=== PATIENT | female | born 1990 | race Two or more races ===

== ENCOUNTER 2016-10-28 10:27 | Emergency (ER) | payer OTHER ==
[~2016-10-28] VITALS: Ht 170.2 cm; Wt 63.5 kg
[2016-10-28] MEDS ORDERED: IV NORMAL SALINE 1,000ML 1,000 ML IV SCH (10:56)
[2016-10-28] MEDS ORDERED: MORPHINE SULFATE 4 MG/ML DISP.SYRIN. IV/SQ PRN (11:00)
[2016-10-28] MEDS ORDERED: ONDANSETRON PF 4 MG/2 ML VIAL. IV ONE (11:15)
[2016-10-28] MEDS ORDERED: methylPREDNISolone SOD SUCC PF 125 MG/2 ML VIAL. IV ONE (11:15)
[2016-10-28] MEDS ORDERED: DICYCLOMINE 20 MG/2 ML AMPUL. IM ONE (11:15)
[2016-10-28 11:30] LABS: BASO # 0.1 x10^3/uL (0.0-0.2); BASO % 1 % (0-3); EOS # 0.2 x10^3/uL (0.0-0.7); EOS % 2 % (0-3); HEMATOCRIT 39.7 % (36.0-47.0); HEMOGLOBIN 12.7 g/dL (12.0-15.5); LYMPH # 1.8 x10^3/uL (1.0-4.8); LYMPH % 24 % (24-48); MEAN CORPUSCULAR HEMOGLOBIN 27 pg (25-35); MEAN CORPUSCULAR HGB CONC 32 g/dL (31-37); MEAN CORPUSCULAR VOLUME 83 fL (79-100); MONO # 0.6 x10^3/uL (0.0-1.1); MONO % 8 % (0-9); NEUT # 4.9 x10^3uL (1.8-7.7); NEUT % 65 % (31-73); PLATELET COUNT 191 x10^3/uL (140-400); RED BLOOD COUNT 4.76 x10^6/uL (3.50-5.40); RED CELL DISTRIBUTION WIDTH 13.9 % (11.5-14.5); WHITE BLOOD COUNT 7.5 x10^3/uL (4.0-11.0)
[2016-10-28 11:37] LABS: ALBUMIN 3.9 g/dL (3.4-5.0); CALCIUM 8.9 mg/dL (8.5-10.1); CREATININE 0.6 mg/dL (0.6-1.0); POTASSIUM 3.4 mmol/L (3.5-5.1); TOTAL BILIRUBIN 0.3 mg/dL (0.2-1.0); TOTAL PROTEIN 7.9 g/dL (6.4-8.2)
--- NOTE | 2016-10-28 11:43 | RAD ---
Acute abdomen series with chest, 3 views, 10/28/2016: History: Abdominal pain Gas is present scattered throughout the colon in a nonspecific pattern. No free air seen in the abdomen. There is no evidence of organomegaly or abnormal abdominal calcification. Bilateral fallopian tube occlusion devices are noted. The heart size is normal. The lungs are clear. There is no evidence of pleural fluid. IMPRESSION: No acute abdominal abnormality is detected.
[2016-10-28 11:47] LABS: BARBITURATES NEG (NEG); BENZODIAZEPINES NEG (NEG); CANNABINOIDS NEG (NEG); COCAINE NEG (NEG); METHADONE NEG (NEG); OPIATES NEG (NEG); PHENCYCLIDINE NEG (NEG)
[2016-10-28 11:48] LABS: AMPHETAMINE/METHAMPHETAMINE NEG (NEG)
--- NOTE | 2016-10-28 11:48 | PHYS DOC ---
General Chief Complaint: ABDOMINAL PAIN Stated Complaint: Crohn's exacerbation Time Seen by MD: 10:31 Source: patient Exam Limitations: no limitations Problems: History of Present Illness Initial Comments Pt is 26/F h/o Crohn's to ED c/o abdominal pain. Pt states she's having Crohn's exacerbation, hasn't had one in 3 years. 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 She says pain was so strong it knocked her into the pool. She dried off and drove herself to ED. Abdominal pain low abdomen/epigastric 8.5 cramping identical to prior sx. Loose watery stool this am she thinks may have had slight blood. Typically takes steroids/pain meds with her exacerbations. No travel/bad food exposure, no fever/chills/cp/sob/n/v/TREJO/joint pain. ED VS: 98.3, 75, 16, 114/70, 98% RA Timing/Duration: 1-3 hours Severity: severe Modifying Factors: improves with medication Associated Symptoms: other Allergies: Coded Allergies: No Known Drug Allergies (Unverified , 10/28/16) Past Medical History Medical History: other (Crohn/s, anemia, anxiety, bipolar, hector's) Surgical History: other (Exp Lap) Social History Smoker: non-smoker Alcohol: none Drugs: none Review of Systems Constitutional: denies chills, denies fever Respiratory: denies cough, denies shortness of breath Cardiovascular: denies chest pain, denies palpitations Gastrointestinal: see HPI Genitourinary: denies dysuria, denies frequency Musculoskeletal: denies back pain, denies joint swelling, denies neck pain Psychiatric/Neurological: denies headache, denies numbness, denies paresthesia Physical Exam General Appearance: WD/WN, mild distress Eyes: bilateral eye EOMI, bilateral eye PERRL, bilateral eye normal inspection Ear, Nose, Throat: hearing grossly normal, normal ENT inspection, normal pharynx Neck: non-tender, supple Respiratory: normal breath sounds, no respiratory distress Cardiovascular: normal peripheral pulses, regular rate, rhythm Gastrointestinal: normal bowel sounds, soft (ND, generalized TTP no focality no r/g/mass), no organomegaly Rectal: deferred Back: no CVA tenderness, no vertebral tenderness Extremities: non-tender, normal inspection 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 PHYSICIAN: GAYLE STRATTON DO REASON: abd pain PROCEDURE: ACUTE ABDOMEN SERIES Acute abdomen series with chest, 3 views, 10/28/2016: History: Abdominal pain Gas is present scattered throughout the colon in a nonspecific pattern. No free air seen in the abdomen. There is no evidence of organomegaly or abnormal abdominal calcification. Bilateral fallopian tube occlusion devices are noted. The heart size is normal. The lungs are clear. There is no evidence of pleural fluid. IMPRESSION: No acute abdominal abnormality is detected. DICTATED AND SIGNED BY: NATALY DE SANTIAGO MD DATE: 10/28/16 1139 CC: GAYLE STRATTON DO ~ K+ slightly low PO replacement given. Pt feeling much better. States she is ready for discharge, requests contact information for local GI as it has been 3 years since her last GI evaluation/scopes. Pt is aware she must obtain referral thru her PCP/arielle. She expressed agreement/understanding with treatment plan. Departure Time of Disposition: 12:22 Disposition: 01 HOME, SELF-CARE Diagnosis: Crohn's exacerbation, hypokalemia Condition: GOOD Patient Instructions: Crohn's Disease, Hypokalemia-Brief Additional Instructions: Work excuse thru 10/31 if needed. Rest, no strenuous activity. Aggressive hydration with gatorade, water. Rx: norco 5mg #15, prednisone, dicyclomine, cipro, flagyl Take meds with food. No alcohol while taking flagyl to avoid severe nausea and vomitting. Follow up with your doctor Tuesday; may need outpatient GI referral. Per your request I include contact information for our local analog ic design architect: Lubna Lozoya MD [facility] [address] [place] [address] Eat one banana twice daily until doctor follow up. Return to ED with new or changing symptoms. GAYLE STRATTON DO Oct 28, 2016 11:48
[2016-10-28 12:02] LABS: BILIRUBIN,URINE NEG (NEG); CLARITY,URINE HAZY; COLOR,URINE AMBER; GLUCOSE,URINE NEG (NEG); NITRITE,URINE NEG (NEG); RBC,URINE 0 /HPF (0-2); SQUAMOUS EPITHELIAL CELL,UR MANY /LPF; UROBILINOGEN,URINE 0.2 mg/dL (0.2 mg/dL)
[2016-10-28 12:03] LABS: AMORPHOUS SEDIMENT,UR PRESENT /HPF; SPERM,URINE PRESENT /HPF
[2016-10-28 12:04] LABS: BACTERIA,URINE FEW /HPF (0-FEW)
[2016-10-28] MEDS ORDERED: POTASSIUM CHLORIDE 20 MEQ TABLET.ER. PO ONE (12:15)
[2016-10-28] MEDS ORDERED: PRED20TA PO (12:18)
[2016-10-28] MEDS ORDERED: METR250T PO (12:18)
[2016-10-28] MEDS ORDERED: DICY20TA3 PO (12:18)
[2016-10-28] MEDS ORDERED: CIPR500T94 PO (12:18)
[2016-10-28] MEDS ORDERED: HYDR-971 PO (12:25)
[2016-10-28] MEDS ORDERED: FENTANYL PF 100 MCG/2 ML VIAL. IV ONE (12:30)
[2016-10-28 12:40] VITALS: BP 101/58
== END 2016-10-28 12:48 | disposition home or self-care (01) ==
LOC: ER 10:27
DX: K50.90 Crohn's disease, unspecified, without complications (principal); E87.6 Hypokalemia; Z86.2 Personal history of diseases of the blood and blood-forming organs and certain disorders involving the immune mechanism
CPT/HCPCS: 36415; 74022; 80053; 80305; 81001; 83690; 84703; 85027; 96361; 96372; 96374; 96375; 99285; J0500; J2270; J2405; J2930; J3010; 81025; G0481; J7030

== ENCOUNTER 2016-12-07 06:39 | Emergency (ER) | payer OTHER ==
[~2016-12-07 06:39] MED LIST: CIPR500T94 PO; DICY20TA3 PO; HYDR-971 PO; METR250T PO; PRED20TA PO
[2016-12-07] MEDS ORDERED: ONDA4TAB7 PO (07:39)
[2016-12-07] MEDS ORDERED: MORP15TA PO (07:39)
--- NOTE | 2016-12-07 07:39 | PHYS DOC ---
Past History Past Medical History: Hypothyroid, Other Past Surgical History: Other Alcohol Use: None Drug Use: None Adult General Chief Complaint Chief Complaint: ABDOMINAL PAIN HPI HPI 26-year-old female presenting to the emergency department with epigastric abdominal pain that radiates bilaterally. She reports blood in her stools and history of Crohn's disease. She reports this is similar to many of her Crohn's flares. The pain is mild intermittent and without alleviating factors. She called her primary care doctor who recommended she come here for evaluation and care. Review of systems is negative for chest pain shortness of breath. Positive for nausea with one episode of nonbilious nonbloody emesis. Negative for fevers chills or rashes. All other review of systems is negative unless otherwise noted in history of present illness. Review of Systems Review of Systems SEE ABOVE. Current Medications Current Medications Current Medications Medications (Trade) Dose Ordered Sig/Dee Dee Start Time Stop Time Status Last Admin Dose Admin Hydromorphone HCl (Dilaudid) 0.5 mg 1X ONCE 12/07/16 08:00 12/07/16 08:01 Ondansetron HCl (Zofran) 4 mg 1X ONCE 12/07/16 07:30 12/07/16 07:31 UNV Sodium Chloride 1,000 ml @ 1,000 mls/hr 1X ONCE 12/07/16 07:30 12/07/16 08:29 UNV Allergies Allergies Allergies Coded Allergies Type Severity Reaction Last Updated Verified No Known Drug Allergies 10/28/16 No Physical Exam Physical Exam Constitutional: Well developed, well nourished, no acute distress, non-toxic appearance. HENT: Normocephalic, atraumatic, bilateral external ears normal, oropharynx moist, no oral exudates, nose normal. Eyes: PERRLA, EOMI, conjunctiva normal, no discharge. [] Neck: Normal range of motion, no tenderness, supple, no stridor. [] Cardiovascular:Heart rate regular rhythm, no murmur Lungs & Thorax: Bilateral breath sounds clear to auscultation [] Abdomen: Soft mildly tender epigastrum without rebound tenderness or guarding present. Negative McBurneys point. Negative De sign. No ecchymosis present. Skin: Warm, dry, no erythema, no rash. [] Back: No tenderness, no CVA tenderness. Extremities: No tenderness, no cyanosis, no clubbing, ROM intact, no edema. Neurologic: Alert and oriented X 3, normal motor function, normal sensory function, no focal deficits noted. [] Psychologic: Affect normal, judgement normal, mood normal. Current Patient Data Vital Signs Vital Signs Date Time Temp Pulse Resp B/P (MAP) Pulse Ox O2 Delivery O2 Flow Rate FiO2 12/07/16 06:50 97.8 66 18 97 Room Air EKG EKG [] Radiology/Procedures Radiology/Procedures [] Course & Med Decision Making Course & Med Decision Making Pertinent Labs and Imaging studies reviewed. (See chart for details) [] 18-year-old female presenting to the emergency department today with epigastric abdominal pain. Vital signs showed her to be afebrile. Normal heart rate. Saturating well. Pertinent physical exam findings showed mild tenderness in the epigastrium without rebound tenderness or guarding. Nontender gallbladder appendix. The patient was given IV fluids nausea and pain medication. Blood work sent. On reexamination the patient's abdomen was nontender, she is feeling better and subsequently discharged home. The patient was then discharged home in stable condition to follow up with their primary care physician over the next 2-3 days. They were to return if their symptoms worsened or if they were concerned for any reason. [id number] discharge instructions and return precautions were given. Patient's questions were answered to their satisfaction. Patient is comfortable plan. Dragon Disclaimer Dragon Disclaimer This chart was dictated in whole or in part using Voice Recognition software in a busy, high-work load, and often noisy Emergency Department environment. It may contain unintended and wholly unrecognized errors or omissions. Departure Departure: Impression: Primary Impression: Epigastric abdominal pain Additional Impression: Nausea and vomiting Disposition: 01 HOME, SELF-CARE Condition: STABLE Referrals: GABRIEL TITUS DO, [facility] (PCP) Patient Instructions: Abdominal Pain, Nausea and Vomiting Additional Instructions: Thank you for allowing us to participate in your care today. Followup with your primary care physician in 3 days if your symptoms do not improve. If you do not have a primary care provider you can ask for a list of our primary care providers. Return to the emergency department you have any new or concerning findings. This should be evaluated by the primary care physician and any necessary consulting services for continued management within a few days after discharge. Return to emergency room if you have any new or concerning symptoms including but not limited to fever, chills, nausea, vomiting, intractable pain, any new rashes, chest pain, shortness of air, uncontrolled bleeding, difficulty breathing, and/or vision loss. Scripts Ondansetron Hcl (ZOFRAN) 4 Mg Tablet 1 TAB PO PRN Q6HRS Y for NAUSEA, #6 TAB Prov: PETROS MCGARRY MD 12/07/16 Morphine Sulfate (MORPHINE SULFATE) 15 Mg Tablet 1 TAB PO PRN Q8HRS Y for SEVERE PAIN, #8 TAB Be careful as this medication may make you sleepy or drowsy. Do not drive or operate heavy machinery on this medication. Be sure to ask the pharmacist about other side effects that can exist such as constipation. Prov: PETROS MCGARRY MD 12/07/16 Problem Qualifiers Additional Impression: Nausea and vomiting Vomiting type: unspecified Vomiting Intractability: non-intractable Qualified Codes: R11.2 - Nausea with vomiting, unspecified PETROS MCGARRY MD December 07, 2016 07:39
[2016-12-07 07:43] LABS: BASO # 0.1 x10^3/uL (0.0-0.2); BASO % 1 % (0-3); EOS # 0.2 x10^3/uL (0.0-0.7); EOS % 3 % (0-3); HEMATOCRIT 37.5 % (36.0-47.0); HEMOGLOBIN 12.4 g/dL (12.0-15.5); LYMPH # 1.6 x10^3/uL (1.0-4.8); LYMPH % 26 % (24-48); MEAN CORPUSCULAR HEMOGLOBIN 27 pg (25-35); MEAN CORPUSCULAR HGB CONC 33 g/dL (31-37); MEAN CORPUSCULAR VOLUME 81 fL (79-100); MONO # 0.5 x10^3/uL (0.0-1.1); MONO % 8 % (0-9); NEUT # 3.7 x10^3uL (1.8-7.7); NEUT % 62 % (31-73); PLATELET COUNT 185 x10^3/uL (140-400); RED BLOOD COUNT 4.62 x10^6/uL (3.50-5.40); RED CELL DISTRIBUTION WIDTH 14.8 % (11.5-14.5); WHITE BLOOD COUNT 6.1 x10^3/uL (4.0-11.0)
[2016-12-07 07:54] LABS: PREG TEST PT QUAL NEGATIVE (NEG)
[2016-12-07 07:55] LABS: ALBUMIN 3.8 g/dL (3.4-5.0); CALCIUM 8.4 mg/dL (8.5-10.1); CREATININE 0.6 mg/dL (0.6-1.0); DIRECT BILIRUBIN 0.1 mg/dL (0.0-0.2); POTASSIUM 3.9 mmol/L (3.5-5.1); TOTAL BILIRUBIN 0.3 mg/dL (0.2-1.0); TOTAL PROTEIN 7.6 g/dL (6.4-8.2)
[2016-12-07] MEDS ORDERED: HYDROmorphone PF 1 MG/ML DISP.SYRIN IV ONE ×2 (08:00→08:45)
[2016-12-07] MEDS ORDERED: ONDANSETRON PF 4 MG/2 ML VIAL. IV ONE (08:00)
[2016-12-07] MEDS ORDERED: IV NORMAL SALINE 1,000ML 1,000 ML IV ONE (08:00)
[2016-12-07 08:29] LABS: BILIRUBIN,URINE NEG (NEG); CLARITY,URINE HAZY; COLOR,URINE AMBER; GLUCOSE,URINE NEG (NEG)
[2016-12-07 08:30] LABS: BACTERIA,URINE 0 /HPF (0-FEW); HYALINE CASTS, URINE OCC /HPF; NITRITE,URINE NEG (NEG); SQUAMOUS EPITHELIAL CELL,UR FEW /LPF; UROBILINOGEN,URINE 0.2 mg/dL (0.2 mg/dL)
[2016-12-07 09:57] VITALS: BP 134/92
== END 2016-12-07 09:40 | disposition home or self-care (01) ==
LOC: ER 06:39
DX: R10.13 Epigastric pain (principal); R11.2 Nausea with vomiting, unspecified; E03.9 Hypothyroidism, unspecified
CPT/HCPCS: 36415; 80048; 80076; 81001; 81025; 83690; 84703; 85027; 96361; 96374; 96375; 96376; 99285; J1170; J2405; J7030

== ENCOUNTER 2017-03-08 20:36 | Emergency (ER) | payer OTHER ==
[~2017-03-08] VITALS: Ht 170.2 cm; Wt 64.9 kg
[~2017-03-08 20:36] MED LIST changes: +MORP15TA PO; +ONDA4TAB7 PO
[2017-03-08 21:40] LABS: BILIRUBIN,URINE NEG (NEG); CLARITY,URINE CLEAR; COLOR,URINE YELLOW; GLUCOSE,URINE NEG (NEG); UROBILINOGEN,URINE 0.2 mg/dL (0.2 mg/dL)
[2017-03-08 21:41] LABS: BACTERIA,URINE 0 /HPF (0-FEW); NITRITE,URINE NEG (NEG); RBC,URINE 0 /HPF (0-2); SQUAMOUS EPITHELIAL CELL,UR OCC /LPF; WBC,URINE OCC /HPF (0-4)
--- NOTE | 2017-03-08 21:43 | PHYS DOC ---
Past History Past Medical History: Hypothyroid, Other Past Surgical History: Other Alcohol Use: None Drug Use: None Adult General Chief Complaint Chief Complaint: FLANK PAIN [facility] HPI 26-year-old female with history of Crohn's disease previously on multiple narcotics, now presents to the emergency department complaining of left low back pain. Patient reports normal bowel and bladder habits. She states her left low back is very sore with movement. No nausea vomiting fevers chills or sweats.It Does not radiate into her buttock or legs. She is able to use her legs normally. Patient cannot identify any injury which might of strained her back. Does not report any strenuous activity falls or trauma. Patient has tubal ligation in place and denies the possibility of Review of Systems Review of Systems Constitutional: Denies fever or chills [] Eyes: Denies change in visual acuity, redness, or eye pain [] HENT: Denies nasal congestion or sore throat [] Respiratory: Denies cough or shortness of breath [] Cardiovascular: No additional information not addressed in HPI [] GI: Denies abdominal pain, nausea, vomiting, bloody stools or diarrhea [] : Denies dysuria or hematuria [] Musculoskeletal: Denies back pain or joint pain [] Integument: Denies rash or skin lesions [] Neurologic: Denies headache, focal weakness or sensory changes [] Endocrine: Denies polyuria or polydipsia [] Allergies Allergies Allergies Coded Allergies Type Severity Reaction Last Updated Verified No Known Drug Allergies 10/28/16 No Physical Exam Physical Exam Well-appearing female no acute distress clear lungs regular rate and rhythm. Left lumbar distribution with soft tissue tenderness laterally. No CVA tenderness. No spinal tenderness no skin changes. Nontender abdomen and pelvis. Normal bowel sounds no mass or megaly nondistended abdomen. Remainder of exam is benign including neurovascularly intact bilateral lower extremities with no saddle anesthesia negative straight leg raise normal symmetrical reflexes. Constitutional: Well developed, well nourished, no acute distress, non-toxic appearance. [] HENT: Normocephalic, atraumatic, bilateral external ears normal, oropharynx moist, no oral exudates, nose normal. [] Eyes: PERRLA, EOMI, conjunctiva normal, no discharge. [] Neck: Normal range of motion, no tenderness, supple, no stridor. [] Cardiovascular:Heart rate regular rhythm, no murmur [] Lungs & Thorax: Bilateral breath sounds clear to auscultation [] Abdomen: Bowel sounds normal, soft, no tenderness, no masses, no pulsatile masses. [] Skin: Warm, dry, no erythema, no rash. [] Back: No tenderness, no CVA tenderness. [] Extremities: No tenderness, no cyanosis, no clubbing, ROM intact, no edema. [] Neurologic: Alert and oriented X 3, no focal deficits noted. [] Psychologic: Affect normal, judgement normal, mood normal. [] Current Patient Data Vital Signs Vital Signs Date Time Temp Pulse Resp B/P (MAP) Pulse Ox O2 Delivery O2 Flow Rate FiO2 03/08/17 20:56 98.0 68 20 98 Room Air EKG EKG [] Radiology/Procedures Radiology/Procedures [] Course & Med Decision Making Course & Med Decision Making Pertinent Labs and Imaging studies reviewed. (See chart for details) Signs and symptoms consistent with musculoskeletal low back pain likely secondary to lumbar strain. Patient appears to have a baseline of anger without basis. No evidence of cauda equina syndrome. Urinalysis pending to rule out less likely possibility of pyelonephritis. Presentation not consistent with renal colic. She has previously been on multiple narcotics by her description for her Crohn's disease. She is very clear that this is not consistent with an exacerbation of her Crohn's disease as she has no anterior abdominal pain. No vomiting or diarrhea. She reports she is not on narcotics currently. We'll give Toradol IM and anticipate outpatient follow-up with NSAIDs and Tylenol. Patient were to follow up with PCP tomorrow for reevaluation and further workup and treatment as needed. She agrees with outpatient follow-up and strict return precautions given. [] Dragon Disclaimer Dragon Disclaimer This chart was dictated in whole or in part using Voice Recognition software in a busy, high-work load, and often noisy Emergency Department environment. It may contain unintended and wholly unrecognized errors or omissions. Departure Departure: Impression: Primary Impression: Low back pain Additional Impression: Lumbar strain Disposition: HOME, SELF-CARE Condition: GOOD Referrals: RAUDEL METCALF MD (PCP) Patient Instructions: Back Pain, Adult Additional Instructions: You have musculoskeletal low back pain. Rest and apply ice if you feel this is helpful. Avoid strenuous activity until you're feeling better. Take 800 mg of ibuprofen every 6 hours as well as Tylenol every 4 hours if necessary. Follow- up with your doctor in 1-2 days and return immediately for new severe or worsening symptoms. Problem Qualifiers YOLANDA MONTERO MD Mar 08, 2017 21:43
[2017-03-08] MEDS: KETOROLAC 60 MG/2 ML VIAL. IM ONE (22:05)
[2017-03-08 22:14] VITALS: BP 110/59
== END 2017-03-08 22:15 | disposition home or self-care (01) ==
LOC: ER 20:36
DX: S39.012A Strain of muscle, fascia and tendon of lower back, initial encounter (principal); E03.9 Hypothyroidism, unspecified; K50.90 Crohn's disease, unspecified, without complications; X58.XXXA Exposure to other specified factors, initial encounter; Y93.89 Activity, other specified; Y99.8 Other external cause status; Y92.89 Other specified places as the place of occurrence of the external cause
CPT/HCPCS: 81001; 96372; 99283; J1885

== ENCOUNTER 2017-03-21 17:16 | Emergency (ER) | payer OTHER ==
[2017-03-21 17:40] VITALS: BP 107/63
--- NOTE | 2017-03-22 05:36 | ED.ADGEN ---
Past History Past Medical History: Hypothyroid, Other Past Surgical History: No Surgical History, Other Alcohol Use: None Drug Use: None Adult General Chief Complaint Chief Complaint sore throat, body aches [facility] Patient is a a female presents with sore throat body aches today. No fever chills or sweats. Pain with swallowing pedis history of strep throat and strep throat exposure. No rash neck stiffness. Review of Systems Review of Systems Constitutional: Denies fever or chills [] Eyes: Denies change in visual acuity, redness, or eye pain [] [] Respiratory: Denies cough or shortness of breath [] Cardiovascular: No additional information not addressed in HPI [] GI: Denies abdominal pain, nausea, vomiting, bloody stools or diarrhea [] : Denies dysuria or hematuria [] Musculoskeletal: Denies back pain or joint pain [] Integument: Denies rash or skin lesions [] Neurologic: Denies headache, focal weakness or sensory changes [] Endocrine: Denies polyuria or polydipsia [] Allergies Allergies Allergies Coded Allergies Type Severity Reaction Last Updated Verified No Known Drug Allergies 10/28/16 No Physical Exam Physical Exam Constitutional: Well developed, well nourished, no acute distress, non-toxic appearance. [] HENT: Normocephalic, atraumatic, bilateral external ears normal, oropharynx moist, red mild swelling, exudate present, nose normal. [] Eyes: PERRLA, EOMI, conjunctiva normal, no discharge. [] Neck: Normal range of motion, no tenderness, supple, no stridor. [] Cardiovascular:Heart rate regular rhythm, no murmur [] Lungs & Thorax: Bilateral breath sounds clear to auscultation [] Abdomen: Bowel sounds normal, soft, no tenderness, no masses, no pulsatile masses. [] Skin: Warm, dry, no erythema, no rash. [] Back: No tenderness, no CVA tenderness. [] Extremities: No tenderness, no cyanosis, no clubbing, ROM intact, no edema. [] Neurologic: Alert and oriented X 3, normal motor function, normal sensory function, no focal deficits noted. [] Psychologic: Affect normal, judgement normal, mood normal. [] Current Patient Data Vital Signs Vital Signs Date Time Temp Pulse Resp B/P (MAP) Pulse Ox O2 Delivery O2 Flow Rate FiO2 03/21/17 17:40 98.9 78 18 99 Room Air EKG EKG [] Radiology/Procedures Radiology/Procedures [] Course & Med Decision Making Course & Med Decision Making Pertinent Labs and Imaging studies reviewed. (See chart for details) [clinical strep pharyngitis] Final Impression Final Impression strep pharyngitis] Problems: Dragon Disclaimer Dragon Disclaimer This electronic medical record was generated, in whole or in part, using a voice recognition dictation system. DANIA ADAM DO Mar 22, 2017 05:36
== END 2017-03-21 18:48 | disposition home or self-care (01) ==
LOC: ER 17:16
DX: J02.0 Streptococcal pharyngitis (principal); E03.9 Hypothyroidism, unspecified
CPT/HCPCS: 99283

== ENCOUNTER 2017-04-20 18:20 | Emergency (ER) | payer OTHER ==
[~2017-04-20] VITALS: Ht 170.2 cm; Wt 64.9 kg
[2017-04-20] MEDS ORDERED: IV NORMAL SALINE 1,000ML 1,000 ML IV ONE (20:00)
[2017-04-20 20:21] LABS: BASO # 0.1 x10^3/uL (0.0-0.2); BASO % 1 % (0-3); EOS # 0.4 x10^3/uL (0.0-0.7); EOS % 4 % (0-3); HEMATOCRIT 38.1 % (36.0-47.0); HEMOGLOBIN 12.6 g/dL (12.0-15.5); LYMPH # 3.2 x10^3/uL (1.0-4.8); LYMPH % 33 % (24-48); MEAN CORPUSCULAR HEMOGLOBIN 27 pg (25-35); MEAN CORPUSCULAR HGB CONC 33 g/dL (31-37); MEAN CORPUSCULAR VOLUME 82 fL (79-100); MONO # 0.8 x10^3/uL (0.0-1.1); MONO % 8 % (0-9); NEUT # 5.2 x10^3uL (1.8-7.7); NEUT % 54 % (31-73); PLATELET COUNT 223 x10^3/uL (140-400); RED BLOOD COUNT 4.65 x10^6/uL (3.50-5.40); RED CELL DISTRIBUTION WIDTH 14.3 % (11.5-14.5); WHITE BLOOD COUNT 9.7 x10^3/uL (4.0-11.0)
[2017-04-20 20:28] LABS: CALCIUM 8.5 mg/dL (8.5-10.1); CREATININE 0.6 mg/dL (0.6-1.0); GFR 118.2; POTASSIUM 3.8 mmol/L (3.5-5.1)
[2017-04-20] MEDS ORDERED: IOHEXOL 300 MG/ML 75 ML VIAL. IV ONE (20:30)
--- NOTE | 2017-04-20 20:58 | RAD ---
CT scan of the neck with contrast 04/20/2017 HISTORY: Difficulty swallowing with neck pain for one week. TECHNIQUE: After the intravenous administration of 75 cc of Omnipaque 300, contiguous, 3 mm axial sections were obtained through the neck. One or more of the following individualized dose reduction techniques were utilized for this study: 1. Automated exposure control. 2. Adjustment of the mA and/or kV according to patient size. 3. Use of iterative reconstruction technique. FINDINGS: The mucosal structures of the nasopharynx, oropharynx, hypopharynx and larynx are within normal limits. The parotid and submandibular glands are within normal limits. The thyroid gland is within normal limits. No abnormal soft tissue mass or fluid collection is seen within the neck. Prominent likely reactive lymph nodes are seen scattered throughout the neck. These measure 5 mm to 1.7 cm in size. The osseous structures are grossly intact. IMPRESSION: No acute abnormality is seen. Electronically signed by: Nando Ponce MD (04/20/2017 8:55 PM) [facility]
[2017-04-20] MEDS ORDERED: PRED-220 PO (21:33)
--- NOTE | 2017-04-20 21:36 | PHYS DOC ---
Past History Past Medical History: Hypothyroid, Other Past Surgical History: No Surgical History, Other Alcohol Use: None Drug Use: None Adult General Chief Complaint Chief Complaint: SORE THROAT HPI HPI Patient is a 27 year old F who presents with sore throat and difficulty swallowing over the past 2 days. She feels that her symptoms are gradually worsening. She denies cough. She denies fevers sweats chills or flulike symptoms. She was treated for strep throat approximately 2-3 weeks ago and feels that her symptoms did resolve. Review of Systems Review of Systems Constitutional: Denies fever or chills [] Eyes: Denies change in visual acuity, redness, or eye pain [] HENT: Denies nasal congestion Respiratory: Denies cough or shortness of breath [] Cardiovascular: No additional information not addressed in HPI [] GI: Denies abdominal pain, nausea, vomiting, bloody stools or diarrhea [] : Denies dysuria or hematuria [] Musculoskeletal: Denies back pain or joint pain [] Integument: Denies rash or skin lesions [] Neurologic: Denies headache, focal weakness or sensory changes [] Endocrine: Denies polyuria or polydipsia [] Family History Family History Noncontributory Current Medications Current Medications No current home medications Current Medications Medications (Trade) Dose Ordered Sig/Dee Dee Start Time Stop Time Status Last Admin Dose Admin Iohexol (Omnipaque 300 Mg/ml) 75 ml 1X ONCE 04/20/17 20:30 04/20/17 20:31 DC 04/20/17 20:23 75 ML Sodium Chloride 1,000 ml @ 1,000 mls/hr 1X ONCE 04/20/17 20:00 04/20/17 20:59 DC 04/20/17 20:05 1,000 MLS/HR Allergies Allergies Allergies Coded Allergies Type Severity Reaction Last Updated Verified No Known Drug Allergies 10/28/16 No Physical Exam Physical Exam Constitutional: Well developed, well nourished, no acute distress, non-toxic appearance. [] HENT: Normocephalic, atraumatic, bilateral external ears normal, oropharynx moist, no oral exudates, nose normal. [] Mild tenderness with palpation of the anterior neck Eyes: PERRLA, conjunctiva normal, no discharge. [] Neck: Normal range of motion, no tenderness, supple, no stridor. [] Cardiovascular:Heart rate regular rhythm, no murmur [] Lungs & Thorax: Bilateral breath sounds clear to auscultation [] Abdomen: Bowel sounds normal, soft, no tenderness, no masses, no pulsatile masses. [] Skin: Warm, dry, no erythema, no rash. [] Back: No tenderness, no CVA tenderness. [] Extremities: No tenderness, no cyanosis, no clubbing, ROM intact, no edema. [] Neurologic: Alert and oriented X 3, normal motor function, normal sensory function, no focal deficits noted. [] Psychologic: Affect normal, judgement normal, mood normal. [] Current Patient Data Vital Signs Vital Signs Date Time Temp Pulse Resp B/P (MAP) Pulse Ox O2 Delivery O2 Flow Rate FiO2 04/20/17 18:20 98.7 80 18 99 Room Air Lab Results Laboratory Tests Test 04/20/17 19:55 White Blood Count 9.7 x10^3/uL (4.0-11.0) Red Blood Count 4.65 x10^6/uL (3.50-5.40) Hemoglobin 12.6 g/dL (12.0-15.5) Hematocrit 38.1 % (36.0-47.0) Mean Corpuscular Volume 82 fL (79-100) Mean Corpuscular Hemoglobin 27 pg (25-35) Mean Corpuscular Hemoglobin Concent 33 g/dL (31-37) Red Cell Distribution Width 14.3 % (11.5-14.5) Platelet Count 223 x10^3/uL (140-400) Neutrophils (%) (Auto) 54 % (31-73) Lymphocytes (%) (Auto) 33 % (24-48) Monocytes (%) (Auto) 8 % (0-9) Eosinophils (%) (Auto) 4 % (0-3) H Basophils (%) (Auto) 1 % (0-3) Neutrophils # (Auto) 5.2 x10^3uL (1.8-7.7) Lymphocytes # (Auto) 3.2 x10^3/uL (1.0-4.8) Monocytes # (Auto) 0.8 x10^3/uL (0.0-1.1) Eosinophils # (Auto) 0.4 x10^3/uL (0.0-0.7) Basophils # (Auto) 0.1 x10^3/uL (0.0-0.2) Sodium Level 140 mmol/L (136-145) Potassium Level 3.8 mmol/L (3.5-5.1) Chloride Level 106 mmol/L (98-107) Carbon Dioxide Level 29 mmol/L (21-32) Anion Gap 5 (6-14) L Blood Urea Nitrogen 7 mg/dL (7-20) Creatinine 0.6 mg/dL (0.6-1.0) Estimated GFR (Cockcroft-Gault) 118.2 Glucose Level 96 mg/dL (70-99) Calcium Level 8.5 mg/dL (8.5-10.1) EKG EKG [] Radiology/Procedures Radiology/Procedures CT soft tissue neck with contrast Impressions: Lymphadenopathy otherwise no acute disease Course & Med Decision Making Course & Med Decision Making Pertinent Labs and Imaging studies reviewed. (See chart for details) She was given IV fluids and IV steroids during her stay. The possibility of strep throat or mono was discussed with Ja. She declined screening for these infections. Her symptoms are most consistent with mono or some other viral infection causing lymphadenopathy. Risks associated with mono including splenic rupture were discussed. She was advised to avoid contact sports despite no physical findings of splenomegaly or left upper quadrant tenderness. She was started on steroids and was given a prescription for antibiotics to start if she develops fever or other symptoms of strep throat. She was strongly encouraged follow-up with her primary care doctor for further management and to return to the emergency room if she develops new or worsening symptoms Dragon Disclaimer Dragon Disclaimer This chart was dictated in whole or in part using Voice Recognition software in a busy, high-work load, and often noisy Emergency Department environment. It may contain unintended and wholly unrecognized errors or omissions. Departure Departure: Impression: Primary Impression: Viral respiratory infection Disposition: 01 HOME, SELF-CARE Condition: STABLE Referrals: RAUDEL METCALF MD (PCP) Patient Instructions: Viral Syndrome Additional Instructions: Ja was seen in the emergency department for difficulty swallowing. No emergency medical condition was found on history or physical exam. She did have normal labs and imaging. Her symptoms are most consistent with a viral infection for which she was started on a steroid to help with swelling. She was also given a prescription for antibiotics to start if she develops fever or flulike symptoms. She was advised follow-up with her primary care doctor in the next 3-5 days for further management. She is also advised to return to the emergency room if she develops new or worsening symptoms. Scripts Azithromycin (AZITHROMYCIN PACKET) 1 Gm Packet 1 PACKET PO ONCE, #1 PACKET Prov: TONNY AMARO MD 04/20/17 Prednisone (PREDNISONE) 10 Mg Tablet 10 MG PO DAILY for 5 Days, #5 TAB Prov: TONNY AMARO MD 04/20/17 TONNY AMARO MD Apr 20, 2017 21:36
[2017-04-20 21:45] VITALS: BP 102/50
[2017-04-20] MEDS ORDERED: DEXAMETHASONE SOD PHOS 10 MG/ML VIAL IV ONE (21:45)
[2017-04-20] MEDS ORDERED: AZIT1PAC9 PO (22:00)
== END 2017-04-20 21:45 | disposition home or self-care (01) ==
LOC: ER 18:20
DX: J98.8 Other specified respiratory disorders (principal); E03.9 Hypothyroidism, unspecified
CPT/HCPCS: 36415; 70491; 80048; 85025; 96361; 96374; 99285; J1100; Q9967; J7030

== ENCOUNTER 2017-06-05 09:14 | Emergency (ER) | payer OTHER ==
[~2017-06-05] VITALS: Ht 170.2 cm; Wt 65.8 kg
[~2017-06-05 09:14] MED LIST changes: +AZIT1PAC9 PO; +PRED-220 PO
[2017-06-05] MEDS ORDERED: IV NORMAL SALINE 1,000ML 1,000 ML IV ONE (09:30)
[2017-06-05 10:00] LABS: HEMATOCRIT 36.8 % (36.0-47.0); HEMOGLOBIN 12.3 g/dL (12.0-15.5); WHITE BLOOD COUNT 5.4 x10^3/uL (4.0-11.0)
[2017-06-05 10:01] LABS: BASO # 0.1 x10^3/uL (0.0-0.2); BASO % 1 % (0-3); EOS # 0.2 x10^3/uL (0.0-0.7); EOS % 4 % (0-3); LYMPH % 19 % (24-48); MEAN CORPUSCULAR HEMOGLOBIN 27 pg (25-35); MEAN CORPUSCULAR HGB CONC 33 g/dL (31-37); MEAN CORPUSCULAR VOLUME 82 fL (79-100); MONO # 0.8 x10^3/uL (0.0-1.1); MONO % 15 % (0-9); NEUT # 3.3 x10^3uL (1.8-7.7); NEUT % 61 % (31-73); PLATELET COUNT 188 x10^3/uL (140-400); RED CELL DISTRIBUTION WIDTH 13.8 % (11.5-14.5)
[2017-06-05 10:11] LABS: PREG TEST PT QUAL NEGATIVE (NEG)
[2017-06-05 10:12] LABS: ALBUMIN 3.3 g/dL (3.4-5.0); ALBUMIN/GLOBULIN RATIO 0.9 (1.0-1.7); C REACTIVE PROTEIN 2.8 mg/L (0-3.3); CALCIUM 8.2 mg/dL (8.5-10.1); CREATININE 0.5 mg/dL (0.6-1.0); GFR 145.9; POTASSIUM 3.7 mmol/L (3.5-5.1); TOTAL BILIRUBIN 0.1 mg/dL (0.2-1.0); TOTAL PROTEIN 7.1 g/dL (6.4-8.2)
--- NOTE | 2017-06-05 10:15 | ED.ADGEN ---
Past History Past Medical History: Asthma, Other Past Surgical History: No Surgical History Alcohol Use: None Drug Use: None Adult General Chief Complaint Chief Complaint Vomiting diarrhea cough HPI HPI Patient is a 27-year-old female with history of Crohn's disease who presents with nonproductive cough, body aches, nausea vomiting and diarrhea the past 2 days. Patient days nausea has now improved but now reports constipation. Fever chills, sweats. No urinary frequency urgency or hematuria. Last menstrual period was 07/28. Patient is currently on suppressive medications for Crohn's disease [place] Review of Systems Review of Systems ROS as per HPI. All other systems were reviewed and found to be within normal limits, except as documented in this note. Current Medications Current Medications Current Medications Medications (Trade) Dose Ordered Sig/Dee Dee Start Time Stop Time Status Last Admin Dose Admin Fentanyl Citrate (Fentanyl 2ml Vial) 50 mcg 1X ONCE 06/05/17 12:15 06/05/17 12:16 DC 06/05/17 12:25 50 MCG Iohexol (Omnipaque 300 Mg/ml) 75 ml 1X ONCE 06/05/17 10:45 06/05/17 10:46 DC 06/05/17 10:50 75 ML Morphine Sulfate (Morphine 4mg Syringe) 4 mg 1X ONCE 06/05/17 11:30 06/05/17 11:31 DC 06/05/17 11:24 4 MG Ondansetron HCl (Zofran) 4 mg 1X ONCE 06/05/17 10:30 06/05/17 10:31 DC 06/05/17 10:29 4 MG Phenazopyridine HCl (Pyridium) 200 mg 1X ONCE 06/05/17 12:00 06/05/17 12:01 DC Sodium Chloride 1,000 ml @ 1,000 mls/hr 1X ONCE 06/05/17 09:30 06/05/17 10:29 DC 06/05/17 09:46 1,000 MLS/HR Allergies Allergies Allergies Coded Allergies Type Severity Reaction Last Updated Verified amoxicillin Allergy Unknown 06/05/17 Yes Physical Exam Physical Exam Constitutional: Well developed, well nourished, no acute distress, non-toxic appearance. [] HENT: Normocephalic, atraumatic, bilateral external ears normal, oropharynx moist, no oral exudates, nose normal. [] Eyes: PERRLA, EOMI, conjunctiva normal, no discharge. [] Neck: Normal range of motion, no tenderness, supple, no stridor. [] Cardiovascular:Heart rate regular rhythm, no murmur [] Lungs & Thorax: Bilateral breath sounds clear to auscultation [] Abdomen: Bowel sounds normal, soft, diffuse lower abdominal pain last tenderness , no rebound rigidity or guarding, negative McBurney's sign.. [] Skin: Warm, dry, no erythema, no rash. [] Back: No tenderness, no CVA tenderness. [] Extremities: No tenderness, no cyanosis, no clubbing, ROM intact, no edema. [] Neurologic: Alert and oriented X 3, normal motor function, normal sensory function, no focal deficits noted. [] Psychologic: Affect normal, judgement normal, mood normal. [] Current Patient Data Vital Signs Vital Signs Date Time Temp Pulse Resp B/P (MAP) Pulse Ox O2 Delivery O2 Flow Rate FiO2 06/05/17 12:25 16 98 06/05/17 10:32 76 98/58 (71) Room Air 06/05/17 09:15 98.4 Lab Results Laboratory Tests Test 06/05/17 09:42 White Blood Count 5.4 x10^3/uL (4.0-11.0) Red Blood Count 4.50 x10^6/uL (3.50-5.40) Hemoglobin 12.3 g/dL (12.0-15.5) Hematocrit 36.8 % (36.0-47.0) Mean Corpuscular Volume 82 fL (79-100) Mean Corpuscular Hemoglobin 27 pg (25-35) Mean Corpuscular Hemoglobin Concent 33 g/dL (31-37) Red Cell Distribution Width 13.8 % (11.5-14.5) Platelet Count 188 x10^3/uL (140-400) Neutrophils (%) (Auto) 61 % (31-73) Lymphocytes (%) (Auto) 19 % (24-48) L Monocytes (%) (Auto) 15 % (0-9) H Eosinophils (%) (Auto) 4 % (0-3) H Basophils (%) (Auto) 1 % (0-3) Neutrophils # (Auto) 3.3 x10^3uL (1.8-7.7) Lymphocytes # (Auto) 1.0 x10^3/uL (1.0-4.8) Monocytes # (Auto) 0.8 x10^3/uL (0.0-1.1) Eosinophils # (Auto) 0.2 x10^3/uL (0.0-0.7) Basophils # (Auto) 0.1 x10^3/uL (0.0-0.2) Urine Collection Type Unknown Urine Color Yellow Urine Clarity Clear Urine pH 7.0 Urine Specific [place] 1.020 Urine Protein Neg (NEG-TRACE) Urine Glucose (UA) Neg mg/dL (NEG) Urine Ketones (Stick) Neg mg/dL (NEG) Urine Blood Neg (NEG) Urine Nitrite Neg (NEG) Urine Bilirubin Neg (NEG) Urine Urobilinogen Dipstick 0.2 mg/dL (0.2 mg/dL) Urine Leukocyte Esterase Neg (NEG) Urine RBC Rare /HPF (0-2) Urine WBC Rare /HPF (0-4) Urine Squamous Epithelial Cells Few /LPF Urine Bacteria Few /HPF (0-FEW) Urine Mucus Mod /LPF Sodium Level 142 mmol/L (136-145) Potassium Level 3.7 mmol/L (3.5-5.1) Chloride Level 107 mmol/L (98-107) Carbon Dioxide Level 27 mmol/L (21-32) Anion Gap 8 (6-14) Blood Urea Nitrogen 4 mg/dL (7-20) L Creatinine 0.5 mg/dL (0.6-1.0) L Estimated GFR (Cockcroft-Gault) 145.9 BUN/Creatinine Ratio 8 (6-20) Glucose Level 86 mg/dL (70-99) Calcium Level 8.2 mg/dL (8.5-10.1) L Total Bilirubin 0.1 mg/dL (0.2-1.0) L Aspartate Amino Transferase (AST) 22 U/L (15-37) Alanine Aminotransferase (ALT) 18 U/L (14-59) Alkaline Phosphatase 56 U/L (46-116) C-Reactive Protein 2.8 mg/L (0-3.3) Total Protein 7.1 g/dL (6.4-8.2) Albumin 3.3 g/dL (3.4-5.0) L Albumin/Globulin Ratio 0.9 (1.0-1.7) L Serum Test, Qualitative Negative (NEG) EKG EKG [] Radiology/Procedures Radiology/Procedures [CT abdomen pelvis: Appendix not clearly identified, pelvic fluid with possible left adnexal assessed her tubal ovarian abscess, parametrial fullness. US pelvis: [id number] quantity of nonspecific free fluid in the pelvis. Small cyst in left ovary. Hyperechoic lesion on the right ovary,'s possible small hemorrhagic cyst.] Course & Med Decision Making Course & Med Decision Making Pertinent Labs and Imaging studies reviewed. (See chart for details) [Symptoms improved with tx: US/CT reviewed. Recommend close PCP/URGENT CARE PHYSICIAN ASSISTANT follow up. Return precautions reviewed. ] Final Impression Final Impression [1. Pelvic pain in female 2. Ovarian cyst] Problems: Dragon Disclaimer Dragon Disclaimer This electronic medical record was generated, in whole or in part, using a voice recognition dictation system. DANIA ADAM DO Jun 05, 2017 10:15
[2017-06-05 10:16] LABS: BILIRUBIN,URINE NEG (NEG); CLARITY,URINE CLEAR; COLOR,URINE YELLOW; GLUCOSE,URINE NEG (NEG)
[2017-06-05 10:17] LABS: BACTERIA,URINE FEW /HPF (0-FEW); NITRITE,URINE NEG (NEG); RBC,URINE RARE /HPF (0-2); SQUAMOUS EPITHELIAL CELL,UR FEW /LPF; UROBILINOGEN,URINE 0.2 mg/dL (0.2 mg/dL); WBC,URINE RARE /HPF (0-4)
[2017-06-05] MEDS ORDERED: MORPHINE SULFATE 4 MG/ML DISP.SYRIN. IV ONE ×2 (10:30→11:30)
[2017-06-05] MEDS ORDERED: ONDANSETRON PF 4 MG/2 ML VIAL. IV ONE (10:30)
[2017-06-05 10:32] VITALS: BP 98/58
[2017-06-05] MEDS ORDERED: IOHEXOL 300 MG/ML 75 ML VIAL. IV ONE (10:45)
--- NOTE | 2017-06-05 11:18 | RAD ---
CT ABD PELV W/ IV CONTRST ONLY History:Left lower quadrant abdominal pain for 2 days of vomiting and fever Technique: After administration of intravenous contrast, CT imaging was performed of the abdomen and pelvis, multiplanar reconstruction images submitted. No oral contrast was given as per request. Exposure: One or more of the following individualized dose reduction techniques were utilized for this exam: 1. Automated exposure control.2. Adjustment of the mA and/or KV according to patient size.3. Use of iterative reconstruction technique. Contrast: 75 cc Omnipaque 300 Comparison: None Findings: There is no abnormality limited visualized lung bases. No focal abnormality is identified of the liver, spleen, pancreas. Both kidneys enhance. There is right pelviectasis/extrarenal pelvis. There is no adrenal nodularity. There is a small quantity of dependent free fluid in the pelvis. There is no free air. Accurate evaluation of bowel is limited without oral contrast. Bowel is not considered significantly dilated. Cecum is deviated more superiorly. Appendix cannot be clearly identified. There are bilateral tubal occlusion devices. There is nonspecific fullness of the parametrial regions. There is likely partially collapsed left adnexal cyst 1.6 cm. There is nonspecific mild fullness of the vascular arcades of the mesentery. Impression: 1.Appendix cannot be clearly identified to exclude acute appendicitis by imaging. Cecum is deviated more superiorly. There is nonspecific mild fullness of the vascular arcades of the mesentery although no obvious bowel wall thickening. 2. There is a small quantity of nonspecific free fluid in the pelvis. There is what likely represents a partially collapsed left adnexal cyst unless clinical suspicion for small tubo-ovarian abscess. There is nonspecific fullness of the parametrial regions bilaterally, question if any suspicion for pelvic inflammatory disease?.
[2017-06-05] MEDS ORDERED: PHENAZOPYRIDINE 200 MG TABLET. PO ONE (12:00)
--- NOTE | 2017-06-05 13:45 | RAD ---
US PELVIS W/TV History:pelvic pain, irregular periods Comparison: CT earlier the same day Findings:Multiple transabdominal sonographic images of the pelvis are submitted. Right ovary measured 2 x 2.8 x 3.1 cm with normal low resistance vascularity. Left ovary measured 2.3 x 3.2 x 4 cm with normal low resistance vascularity. Uterus measured 11.8 x 5.4 cm. Endometrium measured 1.1 cm. Transvaginal ultrasound: Multiple transvaginal sonographic images of the pelvis are submitted. Urinary uterus is retroverted. Uterus measured 9.3 x 6 x 5.3 cm. There is a small to moderate quantity of free fluid in the pelvis. Left ovary measured 4.6 x 2.3 x 3.8 cm. There are a few follicles present. Dominant follicle or small cyst of left ovary measured up to 1.6 cm. Echogenic focus near left ovary is most compatible with tubal occlusion device. Right ovary measured 2 x 3 x 4.3 cm. There are follicles of the right ovary. There is a small hyperechoic lesion of the right ovary up to 0.4 x 0.5 x 0.4 cm in size not associated with significant internal vascularity. There is some fluid in the cervical canal. Impression: 1.There is a small to moderate quantity of nonspecific free fluid in the pelvis. There is a small cyst of the left ovary. There is a small nonspecific hyperechoic lesion of the right ovary, possibly small hemorrhagic cyst, no discernible fat density on CT.
== END 2017-06-05 14:21 | disposition home or self-care (01) ==
LOC: ER 09:14
DX: N83.202 Unspecified ovarian cyst, left side (principal); J45.909 Unspecified asthma, uncomplicated; K50.90 Crohn's disease, unspecified, without complications; Z88.1 Allergy status to other antibiotic agents
CPT/HCPCS: 36415; 74177; 76830; 76856; 80053; 81001; 84703; 85025; 86140; 96361; 96374; 96375; 96376; 99285; J2270; J2405; J3010; Q9967; J7030

== ENCOUNTER 2017-08-03 23:25 | Emergency (ER) | payer OTHER ==
[~2017-08-03] VITALS: Ht 170.2 cm; Wt 69.5 kg
[2017-08-04] MEDS ORDERED: IV NORMAL SALINE 1,000ML 1,000 ML IV ONE ×2 (00:15→04:00)
[2017-08-04] MEDS ORDERED: ONDANSETRON PF 4 MG/2 ML VIAL. IV ONE (01:00)
[2017-08-04 01:31] LABS: BASO # 0.1 x10^3/uL (0.0-0.2); BASO % 1 % (0-3); EOS # 0.3 x10^3/uL (0.0-0.7); EOS % 4 % (0-3); HEMATOCRIT 36.6 % (36.0-47.0); HEMOGLOBIN 12.4 g/dL (12.0-15.5); LYMPH % 25 % (24-48); MEAN CORPUSCULAR HEMOGLOBIN 27 pg (25-35); MEAN CORPUSCULAR HGB CONC 34 g/dL (31-37); MEAN CORPUSCULAR VOLUME 81 fL (79-100); MONO # 0.7 x10^3/uL (0.0-1.1); MONO % 9 % (0-9); NEUT % 62 % (31-73); PLATELET COUNT 197 x10^3/uL (140-400); RED BLOOD COUNT 4.51 x10^6/uL (3.50-5.40); RED CELL DISTRIBUTION WIDTH 13.6 % (11.5-14.5); WHITE BLOOD COUNT 8.2 x10^3/uL (4.0-11.0)
[2017-08-04 01:42] LABS: BACTERIA,URINE 0 /HPF (0-FEW); BILIRUBIN,URINE NEG (NEG); CLARITY,URINE CLEAR; COLOR,URINE YELLOW; GLUCOSE,URINE NEG (NEG); NITRITE,URINE NEG (NEG); RBC,URINE OCC /HPF (0-2); SQUAMOUS EPITHELIAL CELL,UR MANY /LPF; UROBILINOGEN,URINE 0.2 mg/dL (0.2 mg/dL); WBC,URINE OCC /HPF (0-4)
[2017-08-04 01:46] LABS: PREG TEST PT QUAL NEGATIVE (NEG)
[2017-08-04 01:48] LABS: ALBUMIN 3.4 g/dL (3.4-5.0); CALCIUM 9.1 mg/dL (8.5-10.1); CREATININE 0.6 mg/dL (0.6-1.0); DIRECT BILIRUBIN 0.1 mg/dL (0.0-0.2); GFR 118.2; POTASSIUM 3.7 mmol/L (3.5-5.1); TOTAL BILIRUBIN 0.1 mg/dL (0.2-1.0); TOTAL PROTEIN 7.4 g/dL (6.4-8.2)
[2017-08-04] MEDS ORDERED: CONTRAST GIVEN MC PRN (02:30)
[2017-08-04] MEDS ORDERED: IOHEXOL 300 MG/ML 75 ML VIAL. IV ONE (02:30)
--- NOTE | 2017-08-04 03:21 | RAD ---
PQRS Compliance Statement: One or more of the following individualized dose reduction techniques were utilized for this examination: 1. Automated exposure control 2. Adjustment of the mA and/or kV according to patient size 3. Use of iterative reconstruction technique CT ANGIOGRAPHY CHEST, CT ABD PELV W/ IV CONTRST ONLY Clinical Indication: Chest pain, short of air, post op hysterectomy 07/29/17, abdomen pain. Comparison: None. TECHNIQUE: Helical CT imaging of the chest is performed after 75 cc Omnipaque 300 IV contrast using pulmonary angiogram protocol. 3-D MIP reconstruction of the pulmonary arteries. Helical CT imaging continued in the abdomen and pelvis. Oral contrast not given. Findings: Pulmonary arteries are adequately contrast opacified. No CT evidence of pulmonary embolus. No thoracic aortic dissection. Thyroid is symmetric. Subcentimeter mediastinal lymph nodes. Great vessels normal caliber. Cardiac size normal, no pericardial effusion. Central airways are patent. Trace bilateral pleural effusions. There is mild bilateral lower lobe dependent atelectasis. Mild intraperitoneal free air. Liver, gallbladder, spleen, pancreas, adrenal glands, abdominal aorta, and kidneys are normal. Stomach unremarkable. No dilated small bowel. There is no colon wall thickening. No secondary signs of appendicitis. No abdominal adenopathy or free fluid. Urinary bladder is normal. Uterus surgically absent. Mild enhancement of the vaginal cuff is probably postsurgical. There is a right ovary functional cyst measuring up to 2.4 cm. There is mild pelvic free fluid and induration. No acute bone abnormality. IMPRESSION: 1. Postsurgical changes of hysterectomy. No evidence of abscess. 2. No CT evidence of pulmonary embolus. 3. Trace bilateral pleural effusions. 4. Right ovary functional cyst. Electronically signed by: Dakotah Jose MD (08/04/2017 3:18 AM) [id number]
--- NOTE | 2017-08-04 04:08 | PHYS DOC ---
Past History Past Medical History: Anemia, Asthma, Other Past Surgical History: Hysterectomy Alcohol Use: None Drug Use: None Adult General Chief Complaint Chief Complaint: POST-OP PROBLEM HPI HPI 27-year-old female who is postoperative day 5 after having a laparoscopic and robotic hysterectomy at [facility] who presents the emergency department today with both abdominal pain and chest pain. She describes the pain in her abdomen as a sharp shooting pain and reports hearing a pop in her left lower quadrant. The pain radiates diffusely throughout the abdomen. It is moderate to severe intermittent and without alleviating factors. Second chief complaint. Chest pain. The patient describes a sharp shooting pain that started after having her surgery it is nonradiating constant and worse with deep breaths and nonmigratory. She has not had a cough or fever at home. She denies associated diaphoresis. Review of systems is negative for fevers chills diarrhea constipation. She reports having flatus. All other review of systems is negative unless otherwise noted in history of present illness. ED course: 27-year-old female presenting to the emergency department with abdominal pain and chest pain. On arrival the patient is afebrile with a normal heart rate. Saturating well on room air. On examination of the abdomen she has a soft nondistended abdomen with tenderness palpation in the left lower quadrant without rebound tenderness or guarding. Patient's laparoscopic sites are clean dry and intact. Lungs are clear to auscultation bilaterally. No wheezing. Blood work sent. IV established. IV fluids nausea and pain medications given. CT angiogram of the chest along with CT IV contrast of the abdomen pelvis were obtained. No evidence of pulmonary embolism. No acute complications on CT. Blood work unremarkable. On reexamination the patient continues to be in moderate to severe pain after IV pain medications given. I called the patient's SKEET OPERATOR team (Dr. Malone) at [facility] who accepted the patient for admission. The patient was then transferred to them for further evaluation treatment and care. Review of Systems Review of Systems SEE ABOVE. Current Medications Current Medications Current Medications Medications (Trade) Dose Ordered Sig/Dee Dee Start Time Stop Time Status Last Admin Dose Admin Fentanyl Citrate (Fentanyl 2ml Vial) 100 mcg STK-MED ONCE 08/04/17 03:48 08/04/17 03:49 DC Info (Do NOT chart on this entry -- for MONITORING) 1 each PRN DAILY PRN 08/04/17 02:30 08/06/17 02:29 Iohexol (Omnipaque 300 Mg/ml) 75 ml 1X ONCE 08/04/17 02:30 08/04/17 02:31 DC 08/04/17 02:35 75 ML Ondansetron HCl (Zofran) 4 mg 1X ONCE 08/04/17 01:00 08/04/17 01:01 DC 08/04/17 01:00 4 MG Sodium Chloride 1,000 ml @ 1,000 mls/hr 1X ONCE 08/04/17 04:00 08/04/17 04:59 08/04/17 03:51 1,000 MLS/HR Allergies Allergies Allergies Coded Allergies Type Severity Reaction Last Updated Verified amoxicillin Allergy Unknown 06/05/17 Yes peanut Allergy Unknown 08/03/17 Yes shrimp Allergy Unknown 08/03/17 Yes Physical Exam Physical Exam SEE ABOVE Constitutional: Well developed, well nourished, no acute distress, non-toxic appearance. [] HENT: Normocephalic, atraumatic, bilateral external ears normal, oropharynx moist, no oral exudates, nose normal. Eyes: PERRLA, EOMI, conjunctiva normal, no discharge. [] Neck: Normal range of motion, no tenderness, supple, no stridor. Cardiovascular:Heart rate regular rhythm, no murmur [] Lungs & Thorax: Bilateral breath sounds clear to auscultation Abdomen: SEE ABOVE Skin: Warm, dry, no erythema, no rash. [] Back: No tenderness, no CVA tenderness. [] Extremities: No tenderness, no cyanosis, no clubbing, ROM intact, no edema. No evidence of DVT. Neurologic: Alert and oriented X 3, normal motor function, normal sensory function, no focal deficits noted. [] Psychologic: Affect normal, judgement normal, mood normal. Current Patient Data Vital Signs Vital Signs Date Time Temp Pulse Resp B/P (MAP) Pulse Ox O2 Delivery O2 Flow Rate FiO2 08/03/17 23:25 98.0 79 22 98 Room Air Lab Results Laboratory Tests Test 08/04/17 00:34 08/04/17 00:45 08/04/17 00:52 Urine Collection Type Unknown Urine Color Yellow Urine Clarity Clear Urine pH 5.5 Urine Specific [place] 1.025 Urine Protein Neg (NEG-TRACE) Urine Glucose (UA) Neg mg/dL (NEG) Urine Ketones (Stick) Trace mg/dL (NEG) Urine Blood Small (NEG) Urine Nitrite Neg (NEG) Urine Bilirubin Neg (NEG) Urine Urobilinogen Dipstick 0.2 mg/dL (0.2 mg/dL) Urine Leukocyte Esterase Neg (NEG) Urine RBC Occ /HPF (0-2) Urine WBC Occ /HPF (0-4) Urine Squamous Epithelial Cells Many /LPF Urine Bacteria 0 /HPF (0-FEW) POC Urine HCG, Qualitative hcg negative (Negative) White Blood Count 8.2 x10^3/uL (4.0-11.0) Red Blood Count 4.51 x10^6/uL (3.50-5.40) Hemoglobin 12.4 g/dL (12.0-15.5) Hematocrit 36.6 % (36.0-47.0) Mean Corpuscular Volume 81 fL (79-100) Mean Corpuscular Hemoglobin 27 pg (25-35) Mean Corpuscular Hemoglobin Concent 34 g/dL (31-37) Red Cell Distribution Width 13.6 % (11.5-14.5) Platelet Count 197 x10^3/uL (140-400) Neutrophils (%) (Auto) 62 % (31-73) Lymphocytes (%) (Auto) 25 % (24-48) Monocytes (%) (Auto) 9 % (0-9) Eosinophils (%) (Auto) 4 % (0-3) H Basophils (%) (Auto) 1 % (0-3) Neutrophils # (Auto) 5.0 x10^3uL (1.8-7.7) Lymphocytes # (Auto) 2.0 x10^3/uL (1.0-4.8) Monocytes # (Auto) 0.7 x10^3/uL (0.0-1.1) Eosinophils # (Auto) 0.3 x10^3/uL (0.0-0.7) Basophils # (Auto) 0.1 x10^3/uL (0.0-0.2) Sodium Level 140 mmol/L (136-145) Potassium Level 3.7 mmol/L (3.5-5.1) Chloride Level 103 mmol/L (98-107) Carbon Dioxide Level 30 mmol/L (21-32) Anion Gap 7 (6-14) Blood Urea Nitrogen 14 mg/dL (7-20) Creatinine 0.6 mg/dL (0.6-1.0) Estimated GFR (Cockcroft-Gault) 118.2 Glucose Level 85 mg/dL (70-99) Calcium Level 9.1 mg/dL (8.5-10.1) Total Bilirubin 0.1 mg/dL (0.2-1.0) L Direct Bilirubin 0.1 mg/dL (0.0-0.2) Aspartate Amino Transferase (AST) 16 U/L (15-37) Alanine Aminotransferase (ALT) 16 U/L (14-59) Alkaline Phosphatase 59 U/L (46-116) Total Protein 7.4 g/dL (6.4-8.2) Albumin 3.4 g/dL (3.4-5.0) Lipase 74 U/L (73-393) Serum Test, Qualitative Negative (NEG) EKG EKG [] Radiology/Procedures Radiology/Procedures [] Course & Med Decision Making Course & Med Decision Making Pertinent Labs and Imaging studies reviewed. (See chart for details) [] Dragon Disclaimer Dragon Disclaimer This electronic medical record was generated, in whole or in part, using a voice recognition dictation system. Departure Departure: Impression: Primary Impression: Abdominal pain Additional Impression: Chest pain Disposition: 02 XFER SHT-TRM HOSP ([facility]) Condition: STABLE Referrals: RAUDEL METCALF MD (PCP) Problem Qualifiers PETROS MCGARRY MD Aug 04, 2017 04:08
[2017-08-04 04:12] VITALS: BP 95/55
[2017-08-04] MEDS ORDERED: KETOROLAC 30 MG/ML VIAL. IV ONE (04:15)
[2017-08-04] MEDS ORDERED: KETOROLAC 30 MG/ML VIAL. ONE (04:37)
== END 2017-08-04 05:01 | disposition short-term general hospital (02) ==
LOC: ER 23:25
DX: G89.18 Other acute postprocedural pain (principal); R10.32 Left lower quadrant pain; R07.89 Other chest pain; J45.909 Unspecified asthma, uncomplicated; Z86.2 Personal history of diseases of the blood and blood-forming organs and certain disorders involving the immune mechanism; Z90.710 Acquired absence of both cervix and uterus; Z98.890 Other specified postprocedural states; Z88.1 Allergy status to other antibiotic agents; Z91.010 Allergy to peanuts; Z91.013 Allergy to seafood
CPT/HCPCS: 36415; 71275; 74177; 80048; 80076; 81001; 81025; 83690; 84703; 85025; 96361; 96374; 96375; 96376; 99285; J1885; J2405; J3010; Q9967; J7030

== ENCOUNTER 2017-08-28 17:46 | Emergency (ER) | payer OTHER ==
[~2017-08-28] VITALS: Ht 172.7 cm; Wt 69.4 kg
[2017-08-28] MEDS ORDERED: IV NORMAL SALINE 1,000ML 1,000 ML IV SCH (18:36)
[2017-08-28] MEDS ORDERED: 0.9 % SODIUM CHLORIDE 10 ML DISP.SYRIN. IV PRN (18:45)
[2017-08-28] MEDS ORDERED: ONDANSETRON PF 4 MG/2 ML VIAL. IV ONE (19:00)
[2017-08-28] MEDS ORDERED: CONTRAST GIVEN MC PRN (19:00)
[2017-08-28] MEDS ORDERED: HYDROmorphone PF 1 MG/ML DISP.SYRIN IV ONE (19:00)
[2017-08-28] MEDS ORDERED: IOHEXOL 300 MG/ML 75 ML VIAL. IV ONE (19:00)
[2017-08-28] MEDS ORDERED: LORazepam 2 MG/ML VIAL IV ONE (19:00)
[2017-08-28 19:08] LABS: BACTERIA,URINE 0 /HPF (0-FEW); BILIRUBIN,URINE NEG (NEG); CLARITY,URINE CLEAR; COLOR,URINE YELLOW; GLUCOSE,URINE NEG (NEG); NITRITE,URINE NEG (NEG); SQUAMOUS EPITHELIAL CELL,UR OCC /LPF; UROBILINOGEN,URINE 0.2 mg/dL (0.2 mg/dL)
[2017-08-28 19:10] LABS: BASO # 0.1 x10^3/uL (0.0-0.2); BASO % 1 % (0-3); EOS # 0.3 x10^3/uL (0.0-0.7); EOS % 5 % (0-3); HEMATOCRIT 36.7 % (36.0-47.0); LYMPH % 32 % (24-48); MEAN CORPUSCULAR HEMOGLOBIN 27 pg (25-35); MEAN CORPUSCULAR HGB CONC 33 g/dL (31-37); MEAN CORPUSCULAR VOLUME 81 fL (79-100); MONO # 0.6 x10^3/uL (0.0-1.1); MONO % 9 % (0-9); NEUT # 3.3 x10^3uL (1.8-7.7); NEUT % 53 % (31-73); PLATELET COUNT 215 x10^3/uL (140-400); RED BLOOD COUNT 4.51 x10^6/uL (3.50-5.40); WHITE BLOOD COUNT 6.3 x10^3/uL (4.0-11.0)
--- NOTE | 2017-08-28 19:10 | EKG ---
[address] [address] Test Date: 2017-08-28 Test Time: 18:56:00 Pat Name: REYES JORDAN Department: Room: Gender: F Control Operator: DREW : 1990 Requested By: MARCIO HOBBS Order Number: [id number] Reading MD: Ck Evans Measurements Intervals [place] Rate: 76 P: 83 [place]: 166 QRS: 55 QRSD: 80 T: 47 QT: 384 QTc: 436 Interpretive Statements SINUS RHYTHM NONSPECIFIC ST-T WAVE CHANGES. RI6.01 No previous ECG available for comparison Electronically Signed On 08-31-2017 10:00:32 VOLLEYBALL COACH by Ck Evans
--- NOTE | 2017-08-28 19:12 | PHYS DOC ---
Past History Past Medical History: Other Additional Past Medical Histor: Crohn's disease Past Surgical History: , Hysterectomy, Other Additional Past Surgical Histo: colonoscopy, expiratory laparotomy Smoking: Non-smoker Alcohol Use: None Drug Use: None Adult General Chief Complaint Chief Complaint: VAGINAL BLEEDING HPI HPI sHe is a pleasant 26-year-old female with a recent history of hysterectomy about 4 weeks ago, prior history of Crohn's disease, exploratory laparotomy, prior colonoscopy for rectal bleeding presents with vaginal bleeding that began about 3 hours prior to arrival. She is a pleasant 26-year-old female who recently had a hysterectomy and was told by her TRANSITION TEACHER to return immediately if she had any significant bright red blood per vagina. Today while walking around [facility] [place] [place] she felt a gush of fluid from her vagina looks down and she was bleeding into her pants and down her legs. She admits she's had slight lower abdominal pain prior to this event with subjective fevers and chills last several days. Patient denies any UTI symptoms, denies any nausea, vomiting, diarrhea but has had a little bit of dizziness with standing quickly secondary what she believes to be a lot of blood loss. Patient denies any back pain, denies any focal neurologic deficit otherwise, denies any trauma to her pelvis or lower abdomen. Patient denies any rash, swelling, travel outside the country or antibiotic. Patient says the pain is increased with range of motion and direct pressure lower abdomen. Review of Systems Review of Systems Constitutional: Subjective fevers and chills Eyes: Denies change in visual acuity, redness, or eye pain [] HENT: Denies nasal congestion or sore throat [] Respiratory: Denies cough or shortness of breath [] Cardiovascular: No additional information not addressed in HPI [] GI: Lower abdominal pain with nausea but no vomiting no bloody stools no diarrhea.[] : Denies dysuria or hematuria [] Musculoskeletal: Denies back pain or joint pain [] Integument: Denies rash or skin lesions [] Neurologic: Patient does complain of lightheaded dizziness associated with her symptoms.] Endocrine: Denies polyuria or polydipsia [] All other systems were reviewed and found to be within normal limits, except as documented in this note. Current Medications Current Medications Current Medications Medications (Trade) Dose Ordered Sig/Dee Dee Start Time Stop Time Status Last Admin Dose Admin Hydromorphone HCl (Dilaudid) 1 mg 1X ONCE 08/28/17 19:00 2 19:01 Info (Do NOT chart on this entry -- for MONITORING) 1 each PRN DAILY PRN 08/28/17 19:00 2 18:59 Iohexol (Omnipaque 300 Mg/ml) 75 ml 1X ONCE 08/28/17 19:00 08/28/17 19:01 Lorazepam (Ativan) 1 mg 1X ONCE 08/28/17 19:00 08/28/17 19:01 Ondansetron HCl (Zofran) 4 mg 1X ONCE 08/28/17 19:00 08/28/17 19:01 Sodium Chloride (Normal Saline Flush) 10 ml QSHIFT PRN 08/28/17 18:45 Allergies Allergies Allergies Coded Allergies Type Severity Reaction Last Updated Verified amoxicillin Allergy Unknown 08/28/17 Yes peanut Allergy Unknown 08/28/17 Yes shrimp Allergy Unknown 08/28/17 Yes Physical Exam Physical Exam Of the vital signs recorded on the chart within normal limits Constitutional: Well developed, well nourished, no acute distress, non-toxic appearance. [] HENT: Normocephalic, atraumatic, bilateral external ears normal, oropharynx moist no erythema, no oral exudates, nose normal. [] Eyes: PERRLA, EOMI, conjunctiva normal, no discharge. [] Neck: Normal range of motion, no tenderness, supple, no stridor. [] Cardiovascular:Heart rate regular rhythm, no murmur [] Lungs & Thorax: Bilateral breath sounds clear to auscultation [] Abdomen: Significant tenderness to palpation around the umbilicus in the lower suprapubic region. Patient has some voluntary guarding but rebound or organomegaly. There is no De's or McBurney's point tenderness palpation exam: Patient's normal external female genitalia look normal with no obvious lesions there is some bleeding that is noted with clots inside the vaginal vault. The cuff does look intact. Patient had a very difficult time tolerating the procedure and some to remove clot using Lopez swabs to visualize the entire cuff Skin: Warm, dry, no erythema, no rash. [] Back: No tenderness, no CVA tenderness. [] Extremities: No tenderness, no cyanosis, no clubbing, ROM intact, no edema. [] Neurologic: Alert and oriented X 3, normal motor function, normal sensory function, no focal deficits noted. [] Psychologic: She is very anxious but judgment is intact and normal. Current Patient Data Vital Signs Vital Signs Date Time Temp Pulse Resp B/P (MAP) Pulse Ox O2 Delivery O2 Flow Rate FiO2 08/28/17 18:00 98.4 75 16 98 Room Air EKG EKG [] Radiology/Procedures Radiology/Procedures [] IMAGING REPORT Signed PATIENT: REYES JORDAN ACCOUNT: [id number] : 1990 LOCATION: ER AGE: 27 SEX: F EXAM STATUS: REG ER ORD. PHYSICIAN: MARCIO HOBBS MD REASON: post operative bleeding PROCEDURE: CT ABD PELV W/ IV CONTRST ONLY CT abdomen and pelvis with contrast History: Vaginal bleeding after hysterectomy, abdominal pain Technique: After the administration of intravenous contrast, CT imaging was performed of the abdomen and pelvis. No oral contrast was given as per request. Multiplanar images are reviewed. Exposure: One or more of the following individualized dose reduction techniques were utilized for this examination: 1. Automated exposure control 2. Adjustment of the mA and/or kV according to patient size 3. Use of iterative reconstruction technique. Contrast: 75 cc Omnipaque 300 Comparison: August 04, 2017 Findings: There is no significant abnormality of the visualized lung bases. There is suboptimal contrast opacification of the abdominal visceral organs, reported leak during injection of contrast There is no significant abnormality of the liver, spleen, pancreas, adrenal glands. Both kidneys enhance without hydronephrosis. Gallbladder is present, contracted appearance. Accurate evaluation of bowel is limited without oral contrast. There is no significant inflammatory change adjacent to the bowel. There is no evidence of bowel obstruction, free fluid, or free air. Appendix is not clearly identified if still present. Previously seen foci of free air have resolved. There again has been hysterectomy. There is decreased in hazy and strandy change about the vaginal cuff, some residual mild fullness of the vaginal cuff. Previously seen free fluid in the dependent right pelvis has resolved. Previously suggested right adnexal cyst is not seen. There is mild nonspecific circumferential prominence of the urinary bladder correa although stable. Impression: 1. There again has been hysterectomy. There is some residual fullness of the vaginal cuff although stable to decreased, decreased adjacent strandy and hazy change, no new fluid collection of the abdomen or pelvis. Electronically signed by: Dannielle Leger MD (08/28/2017 7:49 PM) [facility] DICTATED AND SIGNED BY: DANNIELLE LEGER MD DATE: 08/28/171940 CC: MARCIO HOBBS MD; RAUDEL METCALF MD ~ Course & Med Decision Making Course & Med Decision Making Patient presents with vaginal bleeding 4 weeks after a total abdominal hysterectomy. She admits she's had a little abdominal discomfort prior to the gush of blood she expresses today. She experienced some dizziness as well with these symptoms. Differential diagnosis for her suprapubic Right lower quadrant abdominal pain Acute pancreatitis. Appendicitis. Acute hepatitis. Peptic ulcer disease. Nonulcer dyspepsia. Irritable bowel disease. Functional gallbladder disorder. Sphincter of Oddi dysfunction. Diseases of the right kidney. Right-sided pneumonia. Nxrv-Cior-Khmpkr syndrome Subhepatic or intraabdominal abscess. Perforated viscus. Cardiac ischemia. Black spider envenomation UTI, pyonephritis, kidney stone, abdominal aneurysm, Cholecystitis Cholelithiasis Ascending cholangitis Postoperative fistula, postoperative hematoma, postoperative bleeding abscess Pertinent Labs and Imaging studies reviewed. (See chart for details) [] Laboratory Tests Test 08/28/17 18:00 White Blood Count 6.3 x10^3/uL (4.0-11.0) Red Blood Count 4.51 x10^6/uL (3.50-5.40) Hemoglobin 12.0 g/dL (12.0-15.5) Hematocrit 36.7 % (36.0-47.0) Mean Corpuscular Volume 81 fL (79-100) Mean Corpuscular Hemoglobin 27 pg (25-35) Mean Corpuscular Hemoglobin Concent 33 g/dL (31-37) Red Cell Distribution Width 14.0 % (11.5-14.5) Platelet Count 215 x10^3/uL (140-400) Neutrophils (%) (Auto) 53 % (31-73) Lymphocytes (%) (Auto) 32 % (24-48) Monocytes (%) (Auto) 9 % (0-9) Eosinophils (%) (Auto) 5 % (0-3) H Basophils (%) (Auto) 1 % (0-3) Neutrophils # (Auto) 3.3 x10^3uL (1.8-7.7) Lymphocytes # (Auto) 2.0 x10^3/uL (1.0-4.8) Monocytes # (Auto) 0.6 x10^3/uL (0.0-1.1) Eosinophils # (Auto) 0.3 x10^3/uL (0.0-0.7) Basophils # (Auto) 0.1 x10^3/uL (0.0-0.2) Urine Collection Type Unknown Urine Color Yellow Urine Clarity Clear Urine pH 6.0 Urine Specific [place] 1.020 Urine Protein Neg (NEG-TRACE) Urine Glucose (UA) Neg mg/dL (NEG) Urine Ketones (Stick) Trace mg/dL (NEG) Urine Blood Mod (NEG) Urine Nitrite Neg (NEG) Urine Bilirubin Neg (NEG) Urine Urobilinogen Dipstick 0.2 mg/dL (0.2 mg/dL) Urine Leukocyte Esterase Neg (NEG) Urine RBC 3-5 /HPF (0-2) Urine WBC 1-4 /HPF (0-4) Urine Squamous Epithelial Cells Occ /LPF Urine Bacteria 0 /HPF (0-FEW) Urine Mucus Mod /LPF Sodium Level 140 mmol/L (136-145) Potassium Level 3.5 mmol/L (3.5-5.1) Chloride Level 104 mmol/L (98-107) Carbon Dioxide Level 28 mmol/L (21-32) Anion Gap 8 (6-14) Blood Urea Nitrogen 10 mg/dL (7-20) Creatinine 0.7 mg/dL (0.6-1.0) Estimated GFR (Cockcroft-Gault) 98.9 Glucose Level 112 mg/dL (70-99) H Calcium Level 8.5 mg/dL (8.5-10.1) Total Bilirubin 0.2 mg/dL (0.2-1.0) Direct Bilirubin < 0.1 mg/dL (0.0-0.2) Aspartate Amino Transferase (AST) 18 U/L (15-37) Alanine Aminotransferase (ALT) 18 U/L (14-59) Alkaline Phosphatase 63 U/L (46-116) Total Protein 7.5 g/dL (6.4-8.2) Albumin 3.6 g/dL (3.4-5.0) Impression presented with postoperative vaginal bleeding. Although patient is not actively bleeding at this time patient's H&H is stable, patient's CMP is unremarkable. Patient urinalysis does not show signs of infection although there is some bleeding noted with red blood cells on the dip. Patient's CT scan shows an improving area of fluid collection around the cough of the post hysterectomy site. There is no inflammation around the appendix. Patient has no obvious signs of abscess or postoperative inflammation. Although the patient is uncomfortable I do not suspect a postoperative abscess. Given the drainage that I see I believe this is postoperative see her sinus drainage.. Patient is a white count I think she is safe for discharge to follow-up with her primary care he TRANSITION TEACHER tomorrow. Impression: Postoperative pain postoperative vaginal bleeding. discharge: I've spoken with the patient and/or caregivers. I've explained the patient's condition, diagnosis and treatment plan based on information available to me at this time. I've answered the patient's and/or caregivers questions and addressed any concerns. The patient and/or caregivers have a good understanding the patient's diagnosis, condition and treatment plan as can be expected at this point. Vital signs have been stabilized. The patient's condition is stable for discharge from the emergency department. The patient will pursue further outpatient evaluation with her primary care provider or other designated consulting physician as outlined in the discharge instructions. Patient and/or caregivers are agreeable to this plan of care and follow-up instructions have been explained in detail. The patient and/or caregivers have received these instructions in written format and expressed understanding of these discharge instructions. The patient and her caregivers are aware that if any significant change in condition or worsening of symptoms should prompt him to immediately return to this of the closest emergency department. If an emergent department is not readily available I would encourage him to call 911. Sangeetha Disclaimer Dragon Disclaimer This electronic medical record was generated, in whole or in part, using a voice recognition dictation system. Departure Departure: Impression: Primary Impression: Abdominal pain Additional Impression: Postoperative vaginal bleeding Disposition: HOME, SELF-CARE Condition: STABLE Referrals: RAUDEL METCALF MD (PCP) Patient Instructions: Abdominal Pain, Pain Relief Preoperatively and Postoperatively, Postsurgical Bleeding Additional Instructions: discharge: I've spoken with the patient and/or caregivers. I've explained the patient's condition, diagnosis and treatment plan based on information available to me at this time. I've answered the patient's and/or caregivers questions and addressed any concerns. The patient and/or caregivers have a good understanding the patient's diagnosis, condition and treatment plan as can be expected at this point. Vital signs have been stabilized. The patient's condition is stable for discharge from the emergency department. The patient will pursue further outpatient evaluation with her primary care provider or other designated consulting physician as outlined in the discharge instructions. Patient and/or caregivers are agreeable to this plan of care and follow-up instructions have been explained in detail. The patient and/or caregivers have received these instructions in written format and expressed understanding of these discharge instructions. The patient and her caregivers are aware that if any significant change in condition or worsening of symptoms should prompt him to immediately return to this of the closest emergency department. If an emergent department is not readily available I would encourage him to call 911. Scripts Naproxen Sodium (NAPROXEN SODIUM) 275 Mg Tablet 275 MG PO BID for 7 Days, #14 TAB Prov: MARCIO HOBBS MD 08/28/17 Hydrocodone Bit/Acetaminophen (HYDROCODONE-APAP 5-325 ) 1 Each Tablet 1 TAB PO PRN Q6HRS Y for PAIN for 3 Days, #10 TAB 0 Refills Prov: MARCIO HOBBS MD 08/28/17 Problem Qualifiers MARCIO HOBBS MD Aug 28, 2017 19:12
[2017-08-28 19:24] LABS: ALBUMIN 3.6 g/dL (3.4-5.0); ALK PHOS 63 U/L (46-116); ALT (SGPT) 18 U/L (14-59); ANION GAP 8 (6-14); AST (SGOT) 18 U/L (15-37); BLOOD UREA NITROGEN 10 mg/dL (7-20); CALCIUM 8.5 mg/dL (8.5-10.1); CARBON DIOXIDE 28 mmol/L (21-32); CHLORIDE 104 mmol/L (98-107); CREATININE 0.7 mg/dL (0.6-1.0); GFR 98.9; GLUCOSE 112 mg/dL (70-99); POTASSIUM 3.5 mmol/L (3.5-5.1); SODIUM 140 mmol/L (136-145); TOTAL BILIRUBIN 0.2 mg/dL (0.2-1.0); TOTAL PROTEIN 7.5 g/dL (6.4-8.2)
[2017-08-28 19:26] LABS: DIRECT BILIRUBIN < 0.1 mg/dL (0.0-0.2)
--- NOTE | 2017-08-28 19:52 | RAD ---
CT abdomen and pelvis with contrast History: Vaginal bleeding after hysterectomy, abdominal pain Technique: After the administration of intravenous contrast, CT imaging was performed of the abdomen and pelvis. No oral contrast was given as per request. Multiplanar images are reviewed. Exposure: One or more of the following individualized dose reduction techniques were utilized for this examination: 1. Automated exposure control 2. Adjustment of the mA and/or kV according to patient size 3. Use of iterative reconstruction technique. Contrast: 75 cc Omnipaque 300 Comparison: August 04, 2017 Findings: There is no significant abnormality of the visualized lung bases. There is suboptimal contrast opacification of the abdominal visceral organs, reported leak during injection of contrast There is no significant abnormality of the liver, spleen, pancreas, adrenal glands. Both kidneys enhance without hydronephrosis. Gallbladder is present, contracted appearance. Accurate evaluation of bowel is limited without oral contrast. There is no significant inflammatory change adjacent to the bowel. There is no evidence of bowel obstruction, free fluid, or free air. Appendix is not clearly identified if still present. Previously seen foci of free air have resolved. There again has been hysterectomy. There is decreased in hazy and strandy change about the vaginal cuff, some residual mild fullness of the vaginal cuff. Previously seen free fluid in the dependent right pelvis has resolved. Previously suggested right adnexal cyst is not seen. There is mild nonspecific circumferential prominence of the urinary bladder correa although stable. Impression: 1. There again has been hysterectomy. There is some residual fullness of the vaginal cuff although stable to decreased, decreased adjacent strandy and hazy change, no new fluid collection of the abdomen or pelvis. Electronically signed by: Clement Pa MD (08/28/2017 7:49 PM) [facility]
[2017-08-28] MEDS ORDERED: NAPR275T59 PO (20:03)
[2017-08-28] MEDS ORDERED: HYDR-2758 PO (20:03)
[2017-08-28 20:45] VITALS: BP 111/75
== END 2017-08-28 20:45 | disposition home or self-care (01) ==
LOC: ER 17:46
DX: N99.820 Postprocedural hemorrhage of a genitourinary system organ or structure following a genitourinary system procedure (principal); G89.18 Other acute postprocedural pain; K50.911 Crohn's disease, unspecified, with rectal bleeding; Z90.710 Acquired absence of both cervix and uterus; Z98.890 Other specified postprocedural states; Z88.1 Allergy status to other antibiotic agents; Z91.010 Allergy to peanuts; Z91.013 Allergy to seafood
CPT/HCPCS: 36415; 74177; 80048; 80076; 81001; 85025; 93005; 96361; 96374; 96375; 99285; J1170; J2060; J2405; Q9967; J7030

== ENCOUNTER 2017-09-01 19:41 | Emergency (ER) | payer OTHER ==
[~2017-09-01] VITALS: Ht 172.7 cm; Wt 69.5 kg
[~2017-09-01 19:41] MED LIST changes: +HYDR-2758 PO; +NAPR275T59 PO
--- NOTE | 2017-09-01 19:44 | ED.ADGEN ---
Past History Past Medical History: Other Additional Past Medical Histor: Crohn's disease Past Surgical History: , Hysterectomy, Other Additional Past Surgical Histo: colonoscopy, expiratory laparotomy Smoking: Non-smoker Alcohol Use: None Drug Use: None Adult General Chief Complaint Chief Complaint " ... I still bleeding and cramping... [facility]... [facility]... I was here on 08/28.. and my Ob said just go back to ED..." HPI HPI Patient is a 27 year old female who presents with above hx and complaints of vaginal and rectal bleeding. Patient had a hysterectomy approximately 5 weeks ago at the [facility] by Dr. Clari Corona. Pt. did have some rectal bleeding after surgery, but it resolved. . Since that time she been seen twice in the emergency room one on 08/04 for post surgery pain 5 days after hysterectomy. Again on 08/28 for vaginal bleeding. Pt. hx of Crohn's and last colonoscopic exam was in 2009. Patient has not taking Crohn's suppressive meds since 2009. Patient's Crohn's is exacerbated by NSAIDs. Has had occasional Crohn's flares which been treated with steroids prescribed in emergency department visits. Pt denies any trauma, no history of travel or specific ill contacts. Patient has history Thyroid disease . Has had prior as laparoscopies exams for abdomen pain. Has previously had an . No history of coagulopathy with her or family members. Pt. has reported not taken and pain meds since surgery 5 weeks ago. Review of Systems Review of Systems Constitutional: Denies fever or chills [] Eyes: Denies change in visual acuity, redness, or eye pain [] HENT: Denies nasal congestion or sore throat [] Respiratory: Denies cough or shortness of breath [] Cardiovascular: No additional information not addressed in HPI [] GI: Complaints of abdominal pain, nausea,. Rectal and vaginal bleeding. Denies vomiting. Complaints of bloody stools. : Denies dysuria or hematuria [] Musculoskeletal: Denies back pain or joint pain [] Integument: Denies rash or skin lesions [] Neurologic: Denies headache, focal weakness or sensory changes [] Endocrine: Denies polyuria or polydipsia [] All other systems were reviewed and found to be within normal limits, except as documented in this note. Family History Family History Noncontributory to presentation Current Medications Current Medications Current Medications Medications (Trade) Dose Ordered Sig/Dee Dee Start Time Stop Time Status Last Admin Dose Admin Ciprofloxacin (Cipro) 500 mg 1X ONCE 09/02/17 01:00 09/02/17 01:01 DC 09/02/17 00:53 500 MG Diphenhydramine HCl (Benadryl) 50 mg 1X ONCE 09/01/17 22:15 09/01/17 22:17 DC 09/01/17 22:33 50 MG Famotidine (Pepcid Vial) 20 mg 1X ONCE 09/01/17 20:00 09/01/17 20:09 DC 09/01/17 20:31 20 MG Folic Acid (FOLIC ACID SYRINGE for ER) 5 mg STK-MED ONCE 09/01/17 22:40 09/01/17 22:41 DC Iohexol (Omnipaque 240 Mg/ml) 50 ml 1X ONCE 09/01/17 22:00 09/01/17 22:03 DC 09/01/17 22:00 50 ML Iohexol (Omnipaque 300 Mg/ml) 75 ml 1X ONCE 09/01/17 22:00 09/01/17 22:03 DC 09/01/17 22:44 75 ML Methylprednisolone Sodium Succinate (SOLU-Medrol 125MG VIAL) 125 mg 1X ONCE 09/01/17 22:15 09/01/17 22:17 DC 09/01/17 22:33 125 MG Metronidazole 100 ml @ 100 mls/hr 1X ONCE 09/02/17 01:00 09/02/17 02:00 DC 09/02/17 00:53 100 MLS/HR Morphine Sulfate (Morphine 10mg Syringe) 10 mg 1X ONCE 09/02/17 01:00 09/02/17 01:01 DC 09/02/17 00:54 10 MG Multivitamins/ Minerals (Infuvite Adult) 10 ml STK-MED ONCE 09/01/17 22:40 09/01/17 22:41 DC Multivitamins/ Minerals 10 ml/ Folic Acid 1 mg/ Thiamine HCl 100 mg/Lactated Ringer's 1,011.1 ml @ 1,000 mls/ hr 1X ONCE 09/01/17 22:30 09/01/17 23:30 DC 09/01/17 22:43 1,000 MLS/HR Ondansetron HCl (Zofran) 8 mg 1X ONCE 09/01/17 20:00 09/01/17 20:08 DC 09/01/17 20:31 8 MG Phytonadione (Vitamin K) 10 mg STK-MED ONCE 09/01/17 22:39 09/01/17 22:40 DC Sodium Chloride 1,000 ml @ 1,000 mls/hr Q1H 09/01/17 20:00 09/01/17 20:59 DC 09/01/17 20:31 1,000 MLS/HR Thiamine HCl 200 mg STK-MED ONCE 09/01/17 22:39 09/01/17 22:40 DC See nursing for home medications Allergies Allergies Allergies Coded Allergies Type Severity Reaction Last Updated Verified amoxicillin Allergy Unknown 09/01/17 Yes peanut Allergy Unknown 09/01/17 Yes shrimp Allergy Unknown 09/01/17 Yes Physical Exam Physical Exam Constitutional: Well developed, well nourished, moderately acute distress, non- toxic appearance. [] HENT: Normocephalic, atraumatic, bilateral external ears normal, oropharynx moist, no oral exudates, nose normal. [] Eyes: PERRLA, EOMI, conjunctiva normal, no discharge. [] Neck: Normal range of motion, no tenderness, supple, no stridor. [] Cardiovascular:Heart rate regular rhythm, no murmur [] Lungs & Thorax: Bilateral breath sounds equal at apex on auscultation [] Abdomen: Bowel sounds normal, soft, pelvic tenderness, no masses, no pulsatile masses. Old surgery scars. Pain localizes to right lower quadrant. Rectal exam trace positive. Vaginal exam shows some bleeding in the area of vaginal cuff. Cuff appears to be intact. Do not appreciate any Crohn's fistula. Skin: Warm, dry, no erythema, no rash. [] Back: No tenderness, no CVA tenderness. [] Extremities: No tenderness, no cyanosis, no clubbing, ROM intact, no edema. Mild psoas and obturator sign Neurologic: Alert and oriented X 3, normal motor function, normal sensory function, no focal deficits noted. [] Psychologic: Affect anxious, judgement normal, mood depressed. Current Patient Data Vital Signs Vital Signs Date Time Temp Pulse Resp B/P (MAP) Pulse Ox O2 Delivery O2 Flow Rate FiO2 09/02/17 00:54 18 99 Room Air 09/01/17 23:00 88 108/66 (80) 09/01/17 19:59 97.4 Lab Results Laboratory Tests Test 09/01/17 19:00 09/01/17 20:28 Erythrocyte Sedimentation Rate 13 (0-25) White Blood Count 7.2 x10^3/uL (4.0-11.0) Red Blood Count 4.63 x10^6/uL (3.50-5.40) Hemoglobin 12.3 g/dL (12.0-15.5) Hematocrit 37.3 % (36.0-47.0) Mean Corpuscular Volume 81 fL (79-100) Mean Corpuscular Hemoglobin 27 pg (25-35) Mean Corpuscular Hemoglobin Concent 33 g/dL (31-37) Red Cell Distribution Width 14.1 % (11.5-14.5) Platelet Count 203 x10^3/uL (140-400) Neutrophils (%) (Auto) 54 % (31-73) Lymphocytes (%) (Auto) 32 % (24-48) Monocytes (%) (Auto) 9 % (0-9) Eosinophils (%) (Auto) 5 % (0-3) H Basophils (%) (Auto) 1 % (0-3) Neutrophils # (Auto) 3.9 x10^3uL (1.8-7.7) Lymphocytes # (Auto) 2.3 x10^3/uL (1.0-4.8) Monocytes # (Auto) 0.6 x10^3/uL (0.0-1.1) Eosinophils # (Auto) 0.3 x10^3/uL (0.0-0.7) Basophils # (Auto) 0.1 x10^3/uL (0.0-0.2) Prothrombin Time 10.9 SEC (9.4-11.4) Prothrombin Time INR 1.1 (0.9-1.1) PTT 26 SEC (23-33) Urine Collection Type Unknown Urine Color Straw Urine Clarity Clear Urine pH 7.0 Urine Specific [place] 1.010 Urine Protein Neg (NEG-TRACE) Urine Glucose (UA) Neg mg/dL (NEG) Urine Ketones (Stick) Neg mg/dL (NEG) Urine Blood Mod (NEG) Urine Nitrite Neg (NEG) Urine Bilirubin Neg (NEG) Urine Urobilinogen Dipstick 0.2 mg/dL (0.2 mg/dL) Urine Leukocyte Esterase Neg (NEG) Urine RBC 1-2 /HPF (0-2) Urine WBC Occ /HPF (0-4) Urine Squamous Epithelial Cells Mod /LPF Urine Bacteria 0 /HPF (0-FEW) Maternal Serum HCG Beta Subunit < 1 mIU/mL (0-6) Sodium Level 141 mmol/L (136-145) Potassium Level 3.5 mmol/L (3.5-5.1) Chloride Level 102 mmol/L (98-107) Carbon Dioxide Level 31 mmol/L (21-32) Anion Gap 8 (6-14) Blood Urea Nitrogen 10 mg/dL (7-20) Creatinine 0.7 mg/dL (0.6-1.0) Estimated GFR (Cockcroft-Gault) 98.9 Glucose Level 95 mg/dL (70-99) Calcium Level 8.7 mg/dL (8.5-10.1) Total Bilirubin 0.2 mg/dL (0.2-1.0) Direct Bilirubin < 0.1 mg/dL (0.0-0.2) Aspartate Amino Transferase (AST) 22 U/L (15-37) Alanine Aminotransferase (ALT) 17 U/L (14-59) Alkaline Phosphatase 64 U/L (46-116) Total Protein 7.5 g/dL (6.4-8.2) Albumin 3.7 g/dL (3.4-5.0) Lipase 83 U/L (73-393) Urine Opiates Screen Neg (NEG) Urine Methadone Screen Neg (NEG) Urine Barbiturates Neg (NEG) Urine Phencyclidine Screen Neg (NEG) Urine Amphetamine/Methamphetamine Neg (NEG) Urine Benzodiazepines Screen Neg (NEG) Urine Cocaine Screen Neg (NEG) Urine Cannabinoids Screen Neg (NEG) Urine Ethyl Alcohol Neg (NEG) Microbiology 09/01/17 Wet Prep - Final, Complete Microbiology 09/01/17 Wet Prep - Final, Complete EKG EKG [] Radiology/Procedures Radiology/Procedures CT findings of abdomen reported no acute surgical findings. Vaginal cuff edema but appears to be intact. No large collections or abscesses. No acute pathology noted or changes from prior CT.[] See formal report when available. Ultrasound shows no acute pathology. Ovarian cyst on left Course & Med Decision Making Course & Med Decision Making Pertinent Labs and Imaging studies reviewed. (See chart for details) Discussed presentation, testing and treatment plan with Dr. Lynn- cleaning matron for Dr. Page. Advised to have pt. call for an apt. this morning- for follow up on tuesday at the clinic with Dr. Page. Patient to stay on a clear fluid diet. No solids or milk products 48 hours. Take Cipro 500 mg daily. Take Flagyl 500 mg 3 times a day. Take prednisolone 50 mg a day for 5 days. Start on Asacol / or equalivent 800mg 2 tablets x 3 times a day for the next 30 days. Patient may take Zofran 8 mg tid for nausea and vomiting. Take previous prescribed pain meds or Percocet as needed for pain. If continued vaginal bleeding follow-up and [facility]. Continue pad counts. [] Final Impression Final Impression 1. Vaginal bleeding post hysterectomy 2. History of Crohn's-suspect having a Crohn's flare. 3. Abdomen pain 4. Vaginal and rectal bleeding Problems: Dragon Disclaimer Dragon Disclaimer This electronic medical record was generated, in whole or in part, using a voice recognition dictation system. RANDY HARRIS MD Sep 01, 2017 19:44
[2017-09-01] MEDS ORDERED: ONDANSETRON PF 4 MG/2 ML VIAL. IV ONE (20:00)
[2017-09-01] MEDS ORDERED: IV NORMAL SALINE 1,000ML 1,000 ML IV SCH (20:00)
[2017-09-01] MEDS ORDERED: FAMOTIDINE 20 MG/2 ML VIAL IVP ONE (20:00)
--- NOTE | 2017-09-01 20:46 | RAD ---
EXAM: Pelvic sonogram. HISTORY: Vaginal bleeding. TECHNIQUE: Transabdominal sonographic imaging of the pelvis was performed. COMPARISON: 06/04/2017. FINDINGS: The uterus is surgically absent. The left ovary is not seen. The right ovary is normal in size and demonstrate normal blood flow. There is no free fluid. There is no abnormality adjacent to the vaginal cuff. IMPRESSION: 1. Surgically absent uterus and nonvisualization of the left ovary. 2. Unremarkable right ovary. 3. No finding to correlate with reported vaginal bleeding. Electronically signed by: Josie Bryant MD (09/01/2017 8:43 PM) [facility]
[2017-09-01 20:55] LABS: BASO # 0.1 x10^3/uL (0.0-0.2); BASO % 1 % (0-3); EOS # 0.3 x10^3/uL (0.0-0.7); EOS % 5 % (0-3); HEMATOCRIT 37.3 % (36.0-47.0); HEMOGLOBIN 12.3 g/dL (12.0-15.5); LYMPH # 2.3 x10^3/uL (1.0-4.8); LYMPH % 32 % (24-48); MEAN CORPUSCULAR HEMOGLOBIN 27 pg (25-35); MEAN CORPUSCULAR HGB CONC 33 g/dL (31-37); MEAN CORPUSCULAR VOLUME 81 fL (79-100); MONO # 0.6 x10^3/uL (0.0-1.1); MONO % 9 % (0-9); NEUT # 3.9 x10^3uL (1.8-7.7); NEUT % 54 % (31-73); PLATELET COUNT 203 x10^3/uL (140-400); RED BLOOD COUNT 4.63 x10^6/uL (3.50-5.40); RED CELL DISTRIBUTION WIDTH 14.1 % (11.5-14.5); WHITE BLOOD COUNT 7.2 x10^3/uL (4.0-11.0)
[2017-09-01 21:03] LABS: ALBUMIN 3.7 g/dL (3.4-5.0); ALK PHOS 64 U/L (46-116); ALT (SGPT) 17 U/L (14-59); ANION GAP 8 (6-14); AST (SGOT) 22 U/L (15-37); BLOOD UREA NITROGEN 10 mg/dL (7-20); CALCIUM 8.7 mg/dL (8.5-10.1); CARBON DIOXIDE 31 mmol/L (21-32); CHLORIDE 102 mmol/L (98-107); CREATININE 0.7 mg/dL (0.6-1.0); GFR 98.9; GLUCOSE 95 mg/dL (70-99); LIPASE 83 U/L (73-393); POTASSIUM 3.5 mmol/L (3.5-5.1); SODIUM 141 mmol/L (136-145); TOTAL BILIRUBIN 0.2 mg/dL (0.2-1.0); TOTAL PROTEIN 7.5 g/dL (6.4-8.2)
[2017-09-01 21:04] LABS: DIRECT BILIRUBIN < 0.1 mg/dL (0.0-0.2)
[2017-09-01 21:19] LABS: BACTERIA,URINE 0 /HPF (0-FEW); BILIRUBIN,URINE NEG (NEG); CLARITY,URINE CLEAR; COLOR,URINE STRAW; GLUCOSE,URINE NEG (NEG); NITRITE,URINE NEG (NEG); SQUAMOUS EPITHELIAL CELL,UR MOD /LPF; UROBILINOGEN,URINE 0.2 mg/dL (0.2 mg/dL); WBC,URINE OCC /HPF (0-4)
[2017-09-01 21:25] LABS: AMPHETAMINE/METHAMPHETAMINE NEG (NEG); BARBITURATES NEG (NEG); BENZODIAZEPINES NEG (NEG); CANNABINOIDS NEG (NEG); COCAINE NEG (NEG); METHADONE NEG (NEG); OPIATES NEG (NEG); PHENCYCLIDINE NEG (NEG)
[2017-09-01] MEDS ORDERED: IOHEXOL 240 MG/ML 50ML VIAL. ONE (21:38)
[2017-09-01] MEDS ORDERED: IOHEXOL 240 MG/ML 50ML VIAL. PO ONE (22:00)
[2017-09-01] MEDS ORDERED: IOHEXOL 300 MG/ML 75 ML VIAL. IV ONE (22:00)
[2017-09-01] MEDS ORDERED: MORPHINE SULFATE 10 MG/ML SYRINGE. SQ ONE (22:15)
[2017-09-01] MEDS ORDERED: diphenhydrAMINE 50 MG/ML VIAL IVP ONE (22:15)
[2017-09-01] MEDS ORDERED: methylPREDNISolone SOD SUCC PF 125 MG/2 ML VIAL. IV ONE (22:15)
[2017-09-01] MEDS ORDERED: MVI, ADULT NO.4 WITH VIT K 10 ML, FOLIC ACID SYRINGE for ER 1 MG, THIAMINE 100 MG in IV... IV ONE ×4 (22:30)
[2017-09-01] MEDS ORDERED: PHYTONADIONE 10 MG/ML AMPUL. ONE (22:39)
[2017-09-01] MEDS ORDERED: THIAMINE 200 MG/2 ML VIAL. IV ONE (22:39)
[2017-09-01] MEDS ORDERED: MVI, ADULT NO.4 WITH VIT K 10 ML VIAL IV ONE (22:40)
[2017-09-01] MEDS ORDERED: FOLIC ACID 5 MG/ML SYRINGE for ER IV ONE (22:40)
[2017-09-01 23:00] VITALS: BP 108/66
--- NOTE | 2017-09-01 23:09 | RAD ---
EXAM: Abdomen and pelvis CT with intravenous contrast. HISTORY: Pain. Vaginal and rectal bleeding. TECHNIQUE: Computed tomographic images of the abdomen and pelvis were obtained following the administration of 75 cc Omnipaque 300 intravenous contrast. Multiplanar reformatting was performed. *One or more of the following individualized dose reduction techniques were utilized for this examination: 1. Automated exposure control. 2. Adjustment of the mA and/or kV according to patient size. 3. Use of iterative reconstruction technique. COMPARISON: 08/28/2017. FINDINGS: Evaluation of the lower thorax demonstrates minimal basilar atelectasis. There is no infiltrate or effusion. There is slight fatty infiltration of the liver along the falciform ligament. The gallbladder, pancreas, spleen, adrenal glands and stomach are unremarkable. There are extrarenal pelves, an incidental finding. There is no obstructive uropathy. The appendix is normal in appearance. The cecum is positioned within the right midabdomen, a normal variant. No abnormally thickened or dilated loop of bowel is seen. There is a small nodule inferior to the spleen due to a splenule. The urinary bladder is unremarkable. There are multiple ovarian follicles with a dominant left ovarian follicular cyst measuring 1.6 cm. There is trace pelvic free fluid. There is no lymphadenopathy. No suspicious osseous lesion is seen. There is subchondral sclerosis involving the sacroiliac joints. IMPRESSION: 1. No acute abdominal or pelvic finding. There are multiple ovarian follicles with a suspected dominant physiologic left ovarian follicular cyst measuring 1.6 cm. The uterus is surgically absent. There is stable fullness of the vaginal cuff due to recent hysterectomy. No abscess is seen. 2. Otherwise, relatively unremarkable abdomen and pelvis CT. Electronically signed by: Josie Bryant MD (09/01/2017 11:06 PM) [facility]
[2017-09-02] MEDS ORDERED: PRED50TA PO (00:30)
[2017-09-02] MEDS ORDERED: METR500T PO (00:34)
[2017-09-02] MEDS ORDERED: MESA1.2T PO (00:34)
[2017-09-02] MEDS ORDERED: CIPR500T94 PO (00:34)
[2017-09-02] MEDS ORDERED: ONDA8TAB12 PO (00:37)
[2017-09-02] MEDS ORDERED: OXYC-323 PO (00:50)
[2017-09-02] MEDS ORDERED: MORPHINE SULFATE 10 MG/ML SYRINGE. SQ ONE (01:00)
[2017-09-02] MEDS ORDERED: CIPROFLOXACIN HCL 500 MG TABLET PO ONE (01:00)
--- NOTE | 2017-09-02 08:05 | RAD ---
Acute abdomen series with chest, 09/01/2017: History: Abdominal pain The abdominal gas pattern is unremarkable. No free air seen in the abdomen. There is no evidence of organomegaly or abnormal abdominal calcification. The heart size is normal. The lungs are clear. IMPRESSION: No acute abdominal abnormality is detected.
[2017-09-05 14:12] LABS: CHLAMYDIA PROBE Negative (Negative)
== END 2017-09-02 02:00 | disposition home or self-care (01) ==
LOC: ER 19:41
DX: N99.820 Postprocedural hemorrhage of a genitourinary system organ or structure following a genitourinary system procedure (principal); N93.9 Abnormal uterine and vaginal bleeding, unspecified; K62.5 Hemorrhage of anus and rectum; Z90.710 Acquired absence of both cervix and uterus; Z88.1 Allergy status to other antibiotic agents; Z91.010 Allergy to peanuts; Z91.013 Allergy to seafood; Z98.890 Other specified postprocedural states
CPT/HCPCS: 36415; 74022; 74177; 76856; 80048; 80076; 80307; 81001; 83690; 84702; 85025; 85610; 85651; 85730; 86850; 86900; 86901; 87491; 87591; 96361; 96365; 96366; 96367; 96372; 96375; 99285; J1200; J2270; J2405; J2930; J3490; J7120; Q0111; Q9966; Q9967; S0028; G0479; J7030

== ENCOUNTER 2017-09-10 20:37 | Emergency (ER) | payer OTHER ==
[~2017-09-10] VITALS: Ht 172.7 cm; Wt 69.4 kg
[~2017-09-10 20:37] MED LIST changes: +MESA1.2T PO; +METR500T PO; +ONDA8TAB12 PO; +OXYC-323 PO; +PRED50TA PO
[2017-09-10 21:14] VITALS: BP 109/53
[2017-09-10 21:16] LABS: BASO # 0.1 x10^3/uL (0.0-0.2); BASO % 1 % (0-3); EOS # 0.3 x10^3/uL (0.0-0.7); EOS % 3 % (0-3); HEMOGLOBIN 12.8 g/dL (12.0-15.5); LYMPH # 3.2 x10^3/uL (1.0-4.8); LYMPH % 31 % (24-48); MEAN CORPUSCULAR HEMOGLOBIN 27 pg (25-35); MEAN CORPUSCULAR HGB CONC 34 g/dL (31-37); MEAN CORPUSCULAR VOLUME 81 fL (79-100); MONO # 1.1 x10^3/uL (0.0-1.1); MONO % 11 % (0-9); NEUT # 5.5 x10^3uL (1.8-7.7); NEUT % 54 % (31-73); PLATELET COUNT 219 x10^3/uL (140-400); RED BLOOD COUNT 4.72 x10^6/uL (3.50-5.40); RED CELL DISTRIBUTION WIDTH 14.3 % (11.5-14.5); WHITE BLOOD COUNT 10.2 x10^3/uL (4.0-11.0)
[2017-09-10 21:24] LABS: CALCIUM 8.6 mg/dL (8.5-10.1); CREATININE 0.7 mg/dL (0.6-1.0); GFR 98.9; POTASSIUM 3.5 mmol/L (3.5-5.1)
[2017-09-10] MEDS ORDERED: KETOROLAC 15 MG/ML VIAL. IV ONE (22:00)
[2017-09-10] MEDS ORDERED: DICL100G18 TP (22:09)
--- NOTE | 2017-09-10 22:09 | PHYS DOC ---
Past History Past Medical History: Anxiety, Asthma Additional Past Medical Histor: Crohn's disease Past Surgical History: Hysterectomy Additional Past Surgical Histo: colonoscopy, expiratory laparotomy Smoking: Non-smoker Alcohol Use: None Drug Use: None Adult General Chief Complaint Chief Complaint: CHEST PAIN-NON CARDIAC NATURE HPI HPI Patient is a 27 year old F who presents with constant dull, pressure-like central chest pain over the past 1 week. Miozoty denies injury. She denies difficulty breathing. She does not feel that she has any associated symptoms. She has no exacerbating or alleviating factors. She is a nonsmoker who does not take any medications regularly. She also has no family history of heart disease. Review of Systems Review of Systems Constitutional: Denies fever or chills [] Eyes: Denies change in visual acuity, redness, or eye pain [] HENT: Denies nasal congestion or sore throat [] Respiratory: Denies cough or shortness of breath [] Cardiovascular: No additional information not addressed in HPI [] GI: Denies abdominal pain, nausea, vomiting, bloody stools or diarrhea [] : Denies dysuria or hematuria [] Musculoskeletal: Denies back pain or joint pain [] Integument: Denies rash or skin lesions [] Neurologic: Denies headache, focal weakness or sensory changes [] Endocrine: Denies polyuria or polydipsia [] All other systems were reviewed and found to be within normal limits, except as documented in this note. Family History Family History No pertinent family medical history was reported Current Medications Current Medications No current medications Current Medications Medications (Trade) Dose Ordered Sig/[facility] Start Time Stop Time Status Last Admin Dose Admin Ketorolac Tromethamine (Toradol) 15 mg 1X ONCE 09/10/17 22:00 09/10/17 22:01 DC 09/10/17 21:53 15 MG Allergies Allergies Allergies Coded Allergies Type Severity Reaction Last Updated Verified amoxicillin Allergy Unknown 09/01/17 Yes peanut Allergy Unknown 09/01/17 Yes shrimp Allergy Unknown 09/01/17 Yes Physical Exam Physical Exam Constitutional: Well developed, well nourished, no acute distress, non-toxic appearance. [] HENT: Normocephalic, atraumatic, Eyes: EOMI, conjunctiva normal, no discharge. [] Neck: Normal range of motion, no tenderness, supple, no stridor. [] Cardiovascular:Heart rate regular rhythm Lungs & Thorax: Bilateral breath sounds clear to auscultation [] Abdomen: Bowel sounds normal, soft, no tenderness, no masses, no pulsatile masses. [] Skin: Warm, dry, no erythema, no rash. [] Extremities: No tenderness, no cyanosis, no clubbing, ROM intact, no edema. [] Neurologic: Alert and oriented X 3, normal motor function, normal sensory function, no focal deficits noted. [] Psychologic: Affect normal, judgement normal, mood normal. [] Current Patient Data Vital Signs Vital Signs Date Time Temp Pulse Resp B/P (MAP) Pulse Ox O2 Delivery O2 Flow Rate FiO2 09/10/17 21:14 98.3 80 20 98 Room Air Lab Results Laboratory Tests Test 09/10/17 20:57 White Blood Count 10.2 x10^3/uL (4.0-11.0) Red Blood Count 4.72 x10^6/uL (3.50-5.40) Hemoglobin 12.8 g/dL (12.0-15.5) Hematocrit 38.0 % (36.0-47.0) Mean Corpuscular Volume 81 fL (79-100) Mean Corpuscular Hemoglobin 27 pg (25-35) Mean Corpuscular Hemoglobin Concent 34 g/dL (31-37) Red Cell Distribution Width 14.3 % (11.5-14.5) Platelet Count 219 x10^3/uL (140-400) Neutrophils (%) (Auto) 54 % (31-73) Lymphocytes (%) (Auto) 31 % (24-48) Monocytes (%) (Auto) 11 % (0-9) H Eosinophils (%) (Auto) 3 % (0-3) Basophils (%) (Auto) 1 % (0-3) Neutrophils # (Auto) 5.5 x10^3uL (1.8-7.7) Lymphocytes # (Auto) 3.2 x10^3/uL (1.0-4.8) Monocytes # (Auto) 1.1 x10^3/uL (0.0-1.1) Eosinophils # (Auto) 0.3 x10^3/uL (0.0-0.7) Basophils # (Auto) 0.1 x10^3/uL (0.0-0.2) Sodium Level 136 mmol/L (136-145) Potassium Level 3.5 mmol/L (3.5-5.1) Chloride Level 102 mmol/L (98-107) Carbon Dioxide Level 24 mmol/L (21-32) Anion Gap 10 (6-14) Blood Urea Nitrogen 9 mg/dL (7-20) Creatinine 0.7 mg/dL (0.6-1.0) Estimated GFR (Cockcroft-Gault) 98.9 Glucose Level 81 mg/dL (70-99) Calcium Level 8.6 mg/dL (8.5-10.1) Troponin I Quantitative < 0.017 ng/mL (0-0.055) EKG EKG Normal sinus rhythm, mild J-point elevation noted throughout. Radiology/Procedures Radiology/Procedures Imaging was declined Course & Med Decision Making Course & Med Decision Making Pertinent Labs and Imaging studies reviewed. (See chart for details) [] Dragon Disclaimer Dragon Disclaimer This electronic medical record was generated, in whole or in part, using a voice recognition dictation system. Departure Departure: Impression: Primary Impression: Chest pain, non-cardiac Disposition: 01 HOME, SELF-CARE Condition: STABLE Referrals: RAUDEL METCALF MD (PCP) Patient Instructions: Costochondritis Additional Instructions: Ja was seen in the emergency department for chest pain. No emergency medical condition was found on history or physical exam. She did have a normal EKG and labs. Her pain was suspicious for rib joint pain or costochondritis versus anxiety. She was given a prescription for Voltaren gel and advised to follow-up with her primary care doctor as needed for further management. She was also advised to return to the emergency room if she develops new or worsening symptoms. Scripts Diclofenac Sodium (VOLTAREN) 100 Gm Gel..gram. 1 GM TP QID, #100 GM 2 Refills Prov: TONNY AMARO MD 09/10/17 TONNY AMARO MD Sep 10, 2017 22:09
--- NOTE | 2017-09-11 11:42 | EKG ---
[facility] [address] [place] [id number] Test Date: 2017-09-10 Test Time: 21:34:28 Pat Name: REYES JORDAN Department: Room: Gender: F Acetylene Cutter: BRETT : 1990 Requested By: TONNY AMARO Order Number: [id number] Reading MD: Measurements Intervals [place] Rate: 68 P: 67 [place]: 158 QRS: 57 QRSD: 78 T: 50 QT: 386 QTc: 411 Interpretive Statements SINUS RHYTHM QRS(T) CONTOUR ABNORMALITY CONSIDER ANTEROSEPTAL MYOCARDIAL DAMAGE POSSIBLY ABNORMAL ECG RI6.01 No previous ECG available for comparison
== END 2017-09-10 22:15 | disposition home or self-care (01) ==
LOC: ER 20:37
DX: R07.89 Other chest pain (principal); F41.9 Anxiety disorder, unspecified; J45.909 Unspecified asthma, uncomplicated; K50.90 Crohn's disease, unspecified, without complications; Z88.1 Allergy status to other antibiotic agents; Z91.010 Allergy to peanuts; Z91.013 Allergy to seafood
CPT/HCPCS: 36415; 80048; 84484; 85025; 93005; 96374; 99285; J1885

== ENCOUNTER 2017-09-16 11:34 | Emergency (ER) | payer OTHER ==
[~2017-09-16] VITALS: Ht 172.7 cm; Wt 69.5 kg
[~2017-09-16 11:34] MED LIST changes: +DICL100G18 TP
[2017-09-16] MEDS ORDERED: KETOROLAC 30 MG/ML VIAL. IV ONE (12:00)
[2017-09-16] MEDS ORDERED: IV NORMAL SALINE 1,000ML 1,000 ML IV SCH (12:00)
[2017-09-16] MEDS ORDERED: 0.9 % SODIUM CHLORIDE 10 ML DISP.SYRIN. IV PRN (12:00)
[2017-09-16] MEDS ORDERED: ONDANSETRON PF 4 MG/2 ML VIAL. IV ONE (12:00)
--- NOTE | 2017-09-16 12:25 | PHYS DOC ---
Past History Past Medical History: Anxiety, Asthma, GERD, Other Additional Past Medical Histor: Crohn's disease Past Surgical History: Hysterectomy Additional Past Surgical Histo: colonoscopy, expiratory laparotomy Smoking: Non-smoker Alcohol Use: None Drug Use: None Adult General Chief Complaint Chief Complaint: ABDOMINAL PAIN [facility] 27-year-old female patient with with long time history of Crohn's disease without taking medication complaining of 8 episodes of nonbloody diarrhea and 4 episodes of vomiting since this morning with upper and lower abdominal cramping pain without radiation. Patient states he is not sure if he had fever and denies urinary symptom. Patient had sick contacts at home. Patient rated her pain 10/10. She has history of hysterectomy 1 month ago. Review of Systems Review of Systems Constitutional: Denies fever or chills [] Eyes: Denies change in visual acuity, redness, or eye pain [] HENT: Denies nasal congestion or sore throat [] Respiratory: Denies cough or shortness of breath [] Cardiovascular: No additional information not addressed in HPI [] GI: Reports abdominal pain, nausea, vomiting, diarrhea [] : Denies dysuria or hematuria [] Musculoskeletal: Denies back pain or joint pain [] Integument: Denies rash or skin lesions [] Neurologic: Denies headache, focal weakness or sensory changes [] Endocrine: Denies polyuria or polydipsia [] All other systems were reviewed and found to be within normal limits, except as documented in this note. Current Medications Current Medications Current Medications Medications (Trade) Dose Ordered Sig/Dee Dee Start Time Stop Time Status Last Admin Dose Admin Ketorolac Tromethamine (Toradol) 30 mg 1X ONCE 09/16/17 12:00 09/16/17 12:07 DC 09/16/17 12:12 30 MG Ondansetron HCl (Zofran) 4 mg 1X ONCE 09/16/17 12:00 09/16/17 12:05 DC 09/16/17 12:13 4 MG Sodium Chloride (Normal Saline Flush) 10 ml QSHIFT PRN 09/16/17 12:00 Allergies Allergies Allergies Coded Allergies Type Severity Reaction Last Updated Verified amoxicillin Allergy Unknown 09/01/17 Yes peanut Allergy Unknown 09/01/17 Yes shrimp Allergy Unknown 09/01/17 Yes Physical Exam Physical Exam Constitutional: Well developed, well nourished, mild distress, non-toxic appearance. [] HENT: Normocephalic, atraumatic, oropharynx moist, no oral exudates, nose normal. [] Eyes: PERRLA, EOMI, conjunctiva normal, no discharge. [] Neck: Normal range of motion, no tenderness, supple, no stridor. [] Cardiovascular:Heart rate regular rhythm, no murmur [] Lungs & Thorax: Bilateral breath sounds clear to auscultation [] Abdomen: Bowel sounds normal, soft, no tenderness, no masses, no pulsatile masses. [] Skin: Warm, dry, no erythema, no rash. [] Back: No tenderness, no CVA tenderness. [] Extremities: No tenderness, no cyanosis, no clubbing, ROM intact, no edema. [] Neurologic: Alert and oriented X 3, normal motor function, normal sensory function, no focal deficits noted. [] Psychologic: Affect normal, judgement normal, mood normal. [] Current Patient Data Vital Signs Vital Signs Date Time Temp Pulse Resp B/P (MAP) Pulse Ox O2 Delivery O2 Flow Rate FiO2 09/16/17 11:48 98.3 98 18 98 Room Air EKG EKG [] Radiology/Procedures Radiology/Procedures [] Course & Med Decision Making Course & Med Decision Making Pertinent Labs reviewed. (See chart for details) Evolution of patient in ER showed 27-year-old female patient with complaining of nausea and vomiting and diarrhea since this morning after she sick contacts at home. Patient thought she had Crohn's exacerbation. Labs was unremarkable without leukocytosis or electrolyte problem or dehydration. Patient treated with IV fluid and Zofran and Toradol nut patient stated her pain did not change even she looked comfortable. Plan to give Ultram and discharge patient home with diagnose acute gastroenteritis. [1314: Patient refused to take Ultram in ER and doesn't want to have prescription of pain medication or Zofran, and states she has Zofran at home. Patient instructed to continue liquids diet. Dragon Disclaimer Dragon Disclaimer This electronic medical record was generated, in whole or in part, using a voice recognition dictation system. Departure Departure: Impression: Primary Impression: Acute gastroenteritis Additional Impressions: Abdominal pain History of Crohn's disease Disposition: HOME, SELF-CARE (At 1315) Condition: IMPROVED Referrals: RAUDEL METCALF MD (PCP) Patient Instructions: Viral Gastroenteritis Additional Instructions: Drink plenty of liquids Follow-up with your primary care physician in 3-5 days Return to ER if not getting better Scripts Tramadol Hcl (ULTRAM) 50 Mg Tablet 50 MG PO PRN Q6HRS Y for PAIN, #14 TAB Prov: MORRO VYAS MD 09/16/17 Ondansetron (ZOFRAN ODT) 4 Mg Tab.rapdis 1 TAB SL Q8HRS, #15 TAB Prov: MORRO VYAS MD 09/16/17 Problem Qualifiers MORRO VYAS MD Sep 16, 2017 12:25
[2017-09-16 12:26] LABS: BASO % 1 % (0-3); EOS # 0.2 x10^3/uL (0.0-0.7); EOS % 2 % (0-3); HEMATOCRIT 37.9 % (36.0-47.0); HEMOGLOBIN 12.8 g/dL (12.0-15.5); LYMPH # 0.9 x10^3/uL (1.0-4.8); LYMPH % 13 % (24-48); MEAN CORPUSCULAR HEMOGLOBIN 27 pg (25-35); MEAN CORPUSCULAR HGB CONC 34 g/dL (31-37); MEAN CORPUSCULAR VOLUME 81 fL (79-100); MONO # 0.6 x10^3/uL (0.0-1.1); MONO % 9 % (0-9); NEUT # 5.3 x10^3uL (1.8-7.7); NEUT % 75 % (31-73); PLATELET COUNT 173 x10^3/uL (140-400); RED BLOOD COUNT 4.68 x10^6/uL (3.50-5.40); RED CELL DISTRIBUTION WIDTH 14.8 % (11.5-14.5); WHITE BLOOD COUNT 7.1 x10^3/uL (4.0-11.0)
[2017-09-16 12:37] LABS: ALBUMIN 3.7 g/dL (3.4-5.0); ALBUMIN/GLOBULIN RATIO 0.9 (1.0-1.7); CALCIUM 8.6 mg/dL (8.5-10.1); CREATININE 0.5 mg/dL (0.6-1.0); GFR 145.9; POTASSIUM 3.7 mmol/L (3.5-5.1); TOTAL BILIRUBIN 0.6 mg/dL (0.2-1.0); TOTAL PROTEIN 7.6 g/dL (6.4-8.2)
[2017-09-16 12:44] LABS: BACTERIA,URINE FEW /HPF (0-FEW); BILIRUBIN,URINE NEG (NEG); CLARITY,URINE CLEAR; COLOR,URINE YELLOW; GLUCOSE,URINE NEG (NEG); NITRITE,URINE NEG (NEG); SQUAMOUS EPITHELIAL CELL,UR MANY /LPF; UROBILINOGEN,URINE 0.2 mg/dL (0.2 mg/dL); WBC,URINE OCC /HPF (0-4)
[2017-09-16] MEDS ORDERED: ONDA4TAB10 SL (12:59)
[2017-09-16] MEDS ORDERED: TRAM-48 PO (12:59)
[2017-09-16] MEDS ORDERED: traMADol 50 MG TABLET PO ONE (13:00)
[2017-09-16 13:35] VITALS: BP 118/70
== END 2017-09-16 13:36 | disposition home or self-care (01) ==
LOC: ER 11:34
DX: K52.89 Other specified noninfective gastroenteritis and colitis (principal); K50.90 Crohn's disease, unspecified, without complications; K21.9 Gastro-esophageal reflux disease without esophagitis; J45.909 Unspecified asthma, uncomplicated; F41.9 Anxiety disorder, unspecified; Z90.710 Acquired absence of both cervix and uterus; Z88.1 Allergy status to other antibiotic agents; Z91.010 Allergy to peanuts; Z91.013 Allergy to seafood
CPT/HCPCS: 36415; 80053; 81001; 83690; 85025; 96361; 96374; 96375; 99284; J1885; J2405; J7030

== ENCOUNTER 2019-12-31 22:21 | Emergency (ER) | payer OTHER ==
[~2019-12-31] VITALS: Ht 170.2 cm; Wt 60.0 kg
[~2019-12-31 22:21] MED LIST changes: +HYDR-2155 PO; -HYDR-2758 PO; +HYDR-3165 PO; -HYDR-971 PO; +ONDA4TAB10 SL; -OXYC-323 PO; +OXYC1TAB15 PO; +TRAM-48 PO
[2019-12-31] MEDS ORDERED: IBUPROFEN 600 MG TABLET. PO ONE (22:33)
[2019-12-31] MEDS ORDERED: ACETAMINOPHEN 500 MG TABLET PO ONE (22:33)
[2019-12-31] MEDS ORDERED: IV NORMAL SALINE 1,000ML 1,000 ML IV ONE (23:00)
[2019-12-31] MEDS ORDERED: METOCLOPRAMIDE HCL 10 MG/2 ML VIAL. IVP ONE (23:30)
[2019-12-31 23:33] LABS: BASO # 0.1 x10^3/uL (0.0-0.2); BASO % 1 % (0-3); EOS # 0.1 x10^3/uL (0.0-0.7); EOS % 1 % (0-3); HEMATOCRIT 40.4 % (36.0-47.0); HEMOGLOBIN 13.3 g/dL (12.0-15.5); LYMPH # 2.1 x10^3/uL (1.0-4.8); LYMPH % 28 % (24-48); MEAN CORPUSCULAR HEMOGLOBIN 28 pg (25-35); MEAN CORPUSCULAR HGB CONC 33 g/dL (31-37); MEAN CORPUSCULAR VOLUME 84 fL (79-100); MONO # 0.6 x10^3/uL (0.0-1.1); MONO % 8 % (0-9); NEUT # 4.6 x10^3uL (1.8-7.7); NEUT % 62 % (31-73); PLATELET COUNT 183 x10^3/uL (140-400); RED BLOOD COUNT 4.79 x10^6/uL (3.50-5.40); RED CELL DISTRIBUTION WIDTH 13.3 % (11.5-14.5); WHITE BLOOD COUNT 7.4 x10^3/uL (4.0-11.0)
[2019-12-31 23:39] LABS: CALCIUM 8.6 mg/dL (8.5-10.1); CREATININE 0.7 mg/dL (0.6-1.0); GFR 118.1; POTASSIUM 3.1 mmol/L (3.5-5.1)
[2019-12-31 23:43] LABS: BACTERIA,URINE 0 /HPF (0-FEW); BILIRUBIN,URINE NEG (NEG); CLARITY,URINE CLEAR; COLOR,URINE YELLOW; GLUCOSE,URINE NEG (NEG); NITRITE,URINE NEG (NEG); RBC,URINE 0 /HPF (0-2); SQUAMOUS EPITHELIAL CELL,UR OCC /LPF; UROBILINOGEN,URINE 0.2 mg/dL (0.2 mg/dL); WBC,URINE RARE /HPF (0-4)
[2019-12-31 23:45] LABS: ALBUMIN 3.8 g/dL (3.4-5.0); MAGNESIUM 1.6 mg/dL (1.8-2.4); TOTAL BILIRUBIN 0.4 mg/dL (0.2-1.0); TOTAL PROTEIN 7.5 g/dL (6.4-8.2)
[2020-01-01] MEDS ORDERED: MAGNESIUM SULFATE 2GM 50 ML IV ONE ×2 (00:05→00:30)
[2020-01-01] MEDS ORDERED: POTASSIUM CHLORIDE 10 MEQ TABLET.ER. PO ONE ×2 (00:05→00:30)
--- NOTE | 2020-01-01 00:55 | PHYS DOC ---
Past History Past Medical History: Anxiety, Asthma, GERD, Other Additional Past Medical Histor: Crohn's disease Past Surgical History: , Hysterectomy Additional Past Surgical Histo: colonoscopy, expiratory laparotomy Smoking: Non-smoker Alcohol Use: Occasionally Drug Use: None General Adult EDM: Chief Complaint: DIZZY/LIGHT HEADED HPI: HPI: Patient is a 29-year-old female who presented to ER today for evaluation of generalized weakness, dizziness lack of appetite for about 3 days. Patient feels tingling sensation in her extremities today, feels weaker today so she came in for evaluation. Patient denies headache, she feels nauseous but no vomiting. Patient denies any abdominal pain, no fever, no headache, no cough. Patient has history of Crohn's disease, but she denies any diarrhea, no abdominal pain. Review of Systems: Review of Systems: Constitutional: Denies fever or chills Eyes: Denies change in visual acuity HENT: Denies nasal congestion or sore throat Respiratory: Denies cough or shortness of breath Cardiovascular: Denies chest pain or edema GI: Denies abdominal pain, vomiting, bloody stools or diarrhea . Positive for nausea : Denies dysuria Musculoskeletal: Denies back pain or joint pain Integument: Denies rash Neurologic: Denies headache, focal weakness or sensory changes . Positive for generalized weakness and dizziness. Endocrine: Denies polyuria or polydipsia Lymphatic: Denies swollen glands Psychiatric: Denies depression or anxiety Heart Score: Risk Factors: Risk Factors: DM, Current or recent (<one month) smoker, HTN, HLP, family history of CAD, obesity. Risk Scores: Score 0 - 3: 2.5% MACE over next 6 weeks - Discharge Home Score 4 - 6: 20.3% MACE over next 6 weeks - Admit for Clinical Observation Score 7 - 10: 72.7% MACE over next 6 weeks - Early Invasive Strategies Current Medications: Current Meds: Current Medications Medications (Trade) Dose Ordered Sig/Dee Dee Start Time Stop Time Status Last Admin Dose Admin Acetaminophen (Tylenol) 500 mg STK-MED ONCE 12/31/19 22:33 12/31/19 22:33 DC Ibuprofen (Motrin) 600 mg STK-MED ONCE 12/31/19 22:33 12/31/19 22:33 DC Magnesium Sulfate 50 ml @ As Directed STK-MED ONCE 01/01/20 00:05 01/01/20 00:05 DC Metoclopramide HCl (Reglan Vial) 10 mg 1X ONCE 12/31/19 23:30 12/31/19 23:31 DC 12/31/19 23:13 10 MG Potassium Chloride (Klor-Con) 10 meq STK-MED ONCE 01/01/20 00:05 01/01/20 00:05 DC Sodium Chloride 1,000 ml @ 1,000 mls/hr 1X ONCE 12/31/19 23:00 12/31/19 23:59 DC 12/31/19 23:13 1,000 MLS/HR Allergies: Allergies: Allergies Coded Allergies Type Severity Reaction Last Updated Verified amoxicillin Allergy Unknown 09/01/17 Yes peanut Allergy Unknown 09/01/17 Yes shrimp Allergy Unknown 09/01/17 Yes Physical Exam: PE: Constitutional: Well developed, well nourished, no acute distress, non-toxic appearance. [] HENT: Normocephalic, atraumatic, bilateral external ears normal, oropharynx moist, no oral exudates, nose normal. [] Eyes: PERRLA, EOMI, conjunctiva normal, no discharge. [] Neck: Normal range of motion, no tenderness, supple, no stridor. [] Cardiovascular:Heart rate regular rhythm, no murmur [] Lungs & Thorax: Bilateral breath sounds clear to auscultation [] Abdomen: Bowel sounds normal, soft, no tenderness, no masses, no pulsatile masses. [] Skin: Warm, dry, no erythema, no rash. [] Back: No tenderness, no CVA tenderness. [] Extremities: No tenderness, no cyanosis, no clubbing, ROM intact, no edema. [] Neurologic: Alert and oriented X 3, normal motor function, normal sensory function, no focal deficits noted. [] Psychologic: Affect normal, judgement normal, mood normal. [] Current Patient Data: Labs: Laboratory Tests Test 12/31/19 22:25 12/31/19 23:00 Urine Collection Type Unknown Urine Color Yellow Urine Clarity Clear Urine pH 7.0 Urine Specific [place] 1.015 Urine Protein Neg (NEG-TRACE) Urine Glucose (UA) Neg mg/dL (NEG) Urine Ketones (Stick) Neg mg/dL (NEG) Urine Blood Trace (NEG) Urine Nitrite Neg (NEG) Urine Bilirubin Neg (NEG) Urine Urobilinogen Dipstick 0.2 mg/dL (0.2 mg/dL) Urine Leukocyte Esterase Neg (NEG) Urine RBC 0 /HPF (0-2) Urine WBC Rare /HPF (0-4) Urine Squamous Epithelial Cells Occ /LPF Urine Bacteria 0 /HPF (0-FEW) White Blood Count 7.4 x10^3/uL (4.0-11.0) Red Blood Count 4.79 x10^6/uL (3.50-5.40) Hemoglobin 13.3 g/dL (12.0-15.5) Hematocrit 40.4 % (36.0-47.0) Mean Corpuscular Volume 84 fL (79-100) Mean Corpuscular Hemoglobin 28 pg (25-35) Mean Corpuscular Hemoglobin Concent 33 g/dL (31-37) Red Cell Distribution Width 13.3 % (11.5-14.5) Platelet Count 183 x10^3/uL (140-400) Neutrophils (%) (Auto) 62 % (31-73) Lymphocytes (%) (Auto) 28 % (24-48) Monocytes (%) (Auto) 8 % (0-9) Eosinophils (%) (Auto) 1 % (0-3) Basophils (%) (Auto) 1 % (0-3) Neutrophils # (Auto) 4.6 x10^3uL (1.8-7.7) Lymphocytes # (Auto) 2.1 x10^3/uL (1.0-4.8) Monocytes # (Auto) 0.6 x10^3/uL (0.0-1.1) Eosinophils # (Auto) 0.1 x10^3/uL (0.0-0.7) Basophils # (Auto) 0.1 x10^3/uL (0.0-0.2) Sodium Level 139 mmol/L (136-145) Potassium Level 3.1 mmol/L (3.5-5.1) L Chloride Level 104 mmol/L (98-107) Carbon Dioxide Level 28 mmol/L (21-32) Anion Gap 7 (6-14) Blood Urea Nitrogen 5 mg/dL (7-20) L Creatinine 0.7 mg/dL (0.6-1.0) Estimated GFR (Cockcroft-Gault) 118.1 BUN/Creatinine Ratio 7 (6-20) Glucose Level 83 mg/dL (70-99) Calcium Level 8.6 mg/dL (8.5-10.1) Magnesium Level 1.6 mg/dL (1.8-2.4) L Total Bilirubin 0.4 mg/dL (0.2-1.0) Aspartate Amino Transferase (AST) 20 U/L (15-37) Alanine Aminotransferase (ALT) 22 U/L (14-59) Alkaline Phosphatase 55 U/L (46-116) Total Protein 7.5 g/dL (6.4-8.2) Albumin 3.8 g/dL (3.4-5.0) Albumin/Globulin Ratio 1.0 (1.0-1.7) Lipase 54 U/L (73-393) L Vital Signs: Vital Signs Date Time Temp Pulse Resp B/P (MAP) Pulse Ox O2 Delivery O2 Flow Rate FiO2 12/31/19 22:22 98.5 77 16 129/75 (93) 99 Room Air EKG: EKG: [] Radiology/Procedures: Radiology/Procedures: [] Course & Med Decision Making: Course & Med Decision Making Pertinent Labs and Imaging studies reviewed. (See chart for details) Patient is a 29-year-old female who was evaluated in the ER due to generalized weakness dizziness. Patient was found to have low potassium and low magnesium. Patient was given IV fluid, potassium p.o. and IV magnesium. Patient feel much better. Patient was discharged home she was instructed to follow-up with her family doctor to have her potassium and magnesium level rechecked in a couple days. Patient is amenable to plan of care. Sangeetha Disclaimer: Sangeetha Disclaimer: This electronic medical record was generated, in whole or in part, using a voice recognition dictation system. Departure Departure: Impression: Primary Impression: Hypomagnesemia Additional Impression: Hypokalemia Disposition: HOME/RESIDENCE PRIOR TO ADM Condition: STABLE Referrals: PCP,NO (PCP) PLEASE FOLLOW UP WITH YOUR DOCTOR FOR REEVALUATION THIS WEEK Patient Instructions: Hypokalemia, Hypomagnesemia Justification of Admission: Justification of Admission: Justification of Admission Dx: N/A TONNY DAVIS DO Jan 01, 2020 00:55
[2020-01-01 01:06] VITALS: BP 90/53
[2020-01-01 18:10] LABS: FREE T4 1.23 ng/dL (0.76-1.46)
[2020-01-01 18:11] LABS: THYROID STIM HORMONE (TSH) 0.02 uIU/mL (0.358-3.740)
== END 2020-01-01 01:08 | disposition home or self-care (01) ==
LOC: ER 22:21
DX: E83.42 Hypomagnesemia (principal); E87.6 Hypokalemia; F41.9 Anxiety disorder, unspecified; J45.909 Unspecified asthma, uncomplicated; K21.9 Gastro-esophageal reflux disease without esophagitis; K50.90 Crohn's disease, unspecified, without complications; Z88.1 Allergy status to other antibiotic agents; Z91.010 Allergy to peanuts; Z91.013 Allergy to seafood
CPT/HCPCS: 36415; 80053; 81001; 83690; 83735; 84436; 84439; 84443; 85025; 96361; 96365; 96375; 99284; J2765; J3475; J7030; 96374

== ENCOUNTER 2020-01-30 15:23 | Emergency (ER) | payer OTHER ==
[~2020-01-30] VITALS: Ht 170.2 cm; Wt 60.5 kg
--- NOTE | 2020-01-30 15:35 | PHYS DOC ---
Past History Past Medical History: Anxiety, Asthma, GERD, Other Additional Past Medical Histor: Crohn's disease Past Surgical History: , Hysterectomy Additional Past Surgical Histo: colonoscopy, expiratory laparotomy Smoking: Non-smoker Alcohol Use: Occasionally Drug Use: None General Adult EDM: Chief Complaint: RIB PAIN HPI: HPI: 29-year-old female with history of Crohn's disease, not currently on medication, who presents for evaluation of left chest wall injury about 5 days ago. The [place] when she missed and contused her left chest wall. She has gradually developed increasingly worse pain, worsened with deep inhalation. No dyspnea per se. No URI symptoms or fever. Review of Systems: Review of Systems: Gen: No fever, chills. CV: No syncope. Reports left chest wall pain. Resp. No SOB, cough. GI: No abd pain, N/V. Neuro: No TREJO, dizziness MSK: No arthralgia, back pain. Reports myalgia. Skin: No acute rash or lesion. Remainder of systems reviewed and negative unless otherwise specified. Heart Score: Risk Factors: Risk Factors: DM, Current or recent (<one month) smoker, HTN, HLP, family history of CAD, obesity. Risk Scores: Score 0 - 3: 2.5% MACE over next 6 weeks - Discharge Home Score 4 - 6: 20.3% MACE over next 6 weeks - Admit for Clinical Observation Score 7 - 10: 72.7% MACE over next 6 weeks - Early Invasive Strategies Allergies: Allergies: Allergies Coded Allergies Type Severity Reaction Last Updated Verified amoxicillin Allergy Unknown 09/01/17 Yes peanut Allergy Unknown 09/01/17 Yes shrimp Allergy Unknown 09/01/17 Yes Physical Exam: PE: Gen: NAD. Well nourished. Head: NC/AT. Eyes: No scleral icterus. No conjunctival injection. PERRL. ENT: MMM. Posterior OP clear. No epistaxis or septal hematoma. Neck: Supple. NT. CV: RRR. Peripheral pulses intact. Resp: CTAB. Chest: Left anterolateral chest wall TTP. Symmetric chest rise. Abd: Soft. NT. ND. MSK: No peripheral cyanosis. No edema. Extremities atraumatic x4. Back: No midline spinal TTP or stepoffs. Neuro: Awake and alert. Skin. Warm. Dry. Psych: Appropriate mood & affect. EKG: EKG: [] Radiology/Procedures: Radiology/Procedures: PROCEDURE: RIBS LEFT AND PA CHEST Examination: RIBS LEFT AND PA CHEST History: left chest wall injury /pain Comparison/Correlation: None Findings: Frontal view of the chest and 3 images of the left ribs were provided. Heart size and pulmonary vasculature are normal. No infiltrate, pleural effusion, or pneumothorax. Left ribs are intact with no fracture. Bony structures are overall unremarkable. Impression: No infiltrate. No left rib fracture. Electronically signed by: Brandon Kelly MD (01/30/2020 3:48 PM) [facility] Course & Med Decision Making: Course & Med Decision Making Pertinent Labs and Imaging studies reviewed. (See chart for details) In summary, 29F p/w closed left chest wall injury 5 days ago, worsening pain in last few days. No SOA. No tachy/hypoxia. Mild nonfocal left chest wall TTP, no c repitus, with symmetric chest rise. Rib/CXR neg for infiltrate/Fx. Considered but do not suspect PE or splenic injury at this time. Given flexeril/lido patch. Remains well appearing and nontoxic. Likely chest contusion. Will Rx flexeril/lido. Return precautions given. Dragon Disclaimer: Sangeetha Disclaimer: This electronic medical record was generated, in whole or in part, using a voice recognition dictation system. Departure Departure: Impression: Primary Impression: Contusion of left chest wall Disposition: HOME/RESIDENCE PRIOR TO ADM Condition: STABLE Referrals: PCP,NO (PCP) Patient Instructions: Chest Contusion, [id number] Additional Instructions: Take ibuprofen 600 mg every 8 hours, in addition to the prescribed medications. Scripts Lidocaine (Lidocaine PATCH ) 1 Each Adh..patch 1 EACH TP DAILY for FOR LOCAL PAIN, #10 PATCH REMOVE AFTER 12 HOURS Prov: ERIN EID H DO 01/30/20 Cyclobenzaprine Hcl (CYCLOBENZAPRINE HCL) 10 Mg Tablet 1 TAB PO TID for muscle strain, #30 TAB Prov: STANTONERIN H DO 01/30/20 Justification of Admission: Justification of Admission: Justification of Admission Dx: N/A ERIN EID DO Jan 30, 2020 15:35
[2020-01-30] MEDS ORDERED: LIDOCAINE (700MG/PATCH) PATCH. ONE (15:36)
[2020-01-30] MEDS ORDERED: CYCLOBENZAPRINE 10 MG TABLET. PO ONE (15:45)
[2020-01-30] MEDS ORDERED: LIDOCAINE (700MG/PATCH) PATCH. TD SCH (15:45)
[2020-01-30 15:47] VITALS: BP 107/66
--- NOTE | 2020-01-30 15:51 | RAD ---
Examination: RIBS LEFT AND PA CHEST History: left chest wall injury /pain Comparison/Correlation: None Findings: Frontal view of the chest and 3 images of the left ribs were provided. Heart size and pulmonary vasculature are normal. No infiltrate, pleural effusion, or pneumothorax. Left ribs are intact with no fracture. Bony structures are overall unremarkable. Impression: No infiltrate. No left rib fracture. Electronically signed by: Brandon Kelly MD (01/30/2020 3:48 PM) [facility]
[2020-01-30] MEDS ORDERED: CYCL-331 PO (15:57)
[2020-01-30] MEDS ORDERED: LIDO700A21 TP (15:57)
== END 2020-01-30 16:12 | disposition home or self-care (01) ==
LOC: ER 15:23
DX: S20.212A Contusion of left front wall of thorax, initial encounter (principal); J45.909 Unspecified asthma, uncomplicated; K21.9 Gastro-esophageal reflux disease without esophagitis; F41.9 Anxiety disorder, unspecified; K50.90 Crohn's disease, unspecified, without complications; Z88.1 Allergy status to other antibiotic agents; Z91.010 Allergy to peanuts; Z91.013 Allergy to seafood; W18.39XA Other fall on same level, initial encounter; Y93.89 Activity, other specified; Y92.89 Other specified places as the place of occurrence of the external cause; Y99.8 Other external cause status
CPT/HCPCS: 71101; 99283